=== PATIENT | female | born 1935 | race African-American/Black ===

== ENCOUNTER 2017-10-07 06:56 | Inpatient (IN) | payer OTHER, MEDICARE ==
[~2017-10-07] VITALS: Ht 154.9 cm; Wt 115.0 kg
[~2017-10-07 06:56] MED LIST: ASPIRIN EC81 M1 PO; IBUPROFEN400 M1 PO; ISOSORBIDE DINI30 M1 PO; ISOSORBIDE MONO30 M1 PO; K-TAB ER10 MEQ PO; LASIX40 M1 PO; NITROSTAT0.4 M1 SL; POTASSIUM CHLO20 ME2 PO; POTASSIUM CHLO20 ME3 PO; PROAIR HFA8.5 GM INH
--- NOTE | 2017-10-07 07:34 | ED CARDIAC/CP/PALPITATIONS ---
History of Present Illness General Chief Complaint: Shoulder Injury Stated Complaint: BIBA SHOULDER PAIN Source: patient Exam Limitations: no limitations Vital Signs & Intake/Output Vital Signs & Intake/Output Vital Signs Date Time Temp Pulse Resp B/P B/P Pulse O2 O2 Flow FiO2 Mean Ox Delivery Rate 10/07 1945 Nasal 2.0L Cannula 10/07 1700 98.0 80 18 140/86 91 / 1533 97.9 76 20 128/64 98 Nasal 2.0L Cannula 10/07 1441 98.0 83 18 137/68 98 Nasal 2.0L Cannula 10/07 1249 97.6 80 20 157/70 95 Nasal 2.0L Cannula 10/07 1043 97.4 73 20 134/63 97 Nasal 2.0L Cannula / 0910 97.0 77 20 135/63 97 Nasal 2.0L Cannula 10/07 0829 97 Nasal 2.0L Cannula / 0704 18 95 Nasal 2.0L Cannula / 0700 98.3 82 18 137/64 91 Room Air Allergies Coded Allergies: Penicillins (Severe, HIVES 03/06/17) Sulfa (Sulfonamide Antibiotics) (Severe, HIVES 03/06/17) Reconcile Medications Aspirin (Ecotrin*) 81 MG TABLET.DR 1 TAB PO DAILY HEART HEALTH (Reported) Furosemide (Lasix) 40 MG TABLET 1 TAB PO DAILY CHF (Reported) Ibuprofen 400 MG TABLET 1 TAB PO Q6 PRN hip pain Isosorbide Dinitrate 30 MG TABLET 1 TAB PO DAILY CAD (Reported) Isosorbide Mononitrate (Isosorbide Mononitrate ER) 30 MG TAB.ER.24H 1 TAB PO DAILY chf Potassium Chloride (K-Tab ER) 10 MEQ TABLET.ER 1 TAB PO DAILY potassium supplement Triage Note: PT BIBA FROM HOME C/O RIGHT ARM SWELLING/PAIN RADIATING UP TO NECK AND AROUND SHOULDER BLADES. PT STATES CHEST PAIN PREVIOUSLY , NOT CURRENT, SHARP SHOOTING CP. PT DENIES ARM NUMBNESS/TINGLING, JAW OR BACK PAIN, N/V/D. PTS VSS BESIDES 02 LEVEL OF 91% ON RA ON ARRIVAL. PT PLACED ON 2L NC 95% O2. PTS DAUGHTER STATES THAT YESTERDAY PT WAS COMPLAINING OF SWELLING AND ACHING IN HER NECK. PTS RIGHT ARM IS SWOLLEN/HARD TO MOVE PER PT. PT [facility]R[address] A [facility] [facility] Triage Nurses Notes Reviewed? yes Onset: Abrupt Duration: day(s): (3), constant Timing: single episode today Quality/Severity: moderate Location: central Radiation: neck, shoulders Activities at Onset: none Prior Chest Pain/Card Workup: no prior chest pain, no prior cardiac workup Modifying Factors: Improves With: movement. Nitro Today/Relief: no nitro taken today Aspirin Today: no aspirin today Associated Symptoms: shortness of breath LMP (ages 10-50): unknown : No Patient currently breastfeeds: No HPI: 82-year-old female past medical history of CHF, asthma presents for evaluation of chest pain, arm pain and shortness breath. Patient reports symptoms started on Saturday with pain in her chest radiating to her right shoulder and neck and right arm. The pain was initially described as sharp without alleviating or agony factors. States that today the pain is only present in the right arm. The pain is located in the right elbow and right wrist. She feels like her arm is swollen the pain is worse in any type of movement or touching the area. There is no trauma no redness or fever. She still reports some shortness of breath worse on exertion. She is not a smoker no history of COPD. She denies hemoptysis abdominal pain nausea vomiting or diarrhea. (Alok Reza) Past History Travel History Traveled to [place] past 21 day No Medical History Any Pertinent Medical History? see below for history Cardiovascular: CHF, hypertension Respiratory: asthma, bronchitis Musculoskeletal: ARTHRITIS Surgical History Surgical History: non-contributory Psychosocial History What is your primary language Ukrainian Tobacco Use: Quit >30 days ago Family History Hx Contributory? No (Alok Reza) Review of Systems Review of Systems Constitutional: Reports: no symptoms. EENTM: Reports: no symptoms. Respiratory: Reports: see HPI, short of breath. Cardiovascular: Reports: see HPI, chest pain. GI: Reports: no symptoms. Genitourinary: Reports: no symptoms. Musculoskeletal: Reports: no symptoms. Skin: Reports: no symptoms. Neurological/Psychological: Reports: no symptoms. Hematologic/Endocrine: Reports: no symptoms. Immunologic/Allergic: Reports: no symptoms. All Other Systems: Reviewed and Negative (Alok Reza) Physical Exam Physical Exam General Appearance: well developed/nourished, no apparent distress, alert, awake , obese Head: atraumatic, normal appearance Eyes: Bilateral: normal appearance, PERRL, EOMI. Ears, Nose, Throat: normal pharynx, normal ENT inspection, hearing grossly normal Neck: normal inspection, supple, full range of motion Respiratory: chest non-tender, no respiratory distress, quiet respiration, decreased breath sounds Cardiovascular: regular rate/rhythm, normal peripheral pulses Peripheral Pulses: 2+ radial (R), 2+ radial (L) Gastrointestinal: normal bowel sounds, soft, non-tender, no organomegaly Back: normal inspection, normal range of motion, no vertebral tenderness Extremities: no edema, RANGE OF MOTION OF THE RIGHT UPPER EXTREMITY IS REDUCED DUE TO PAIN. tHERE IS PAIN TO PALPATION IN THE RIGHT ELBOW AND RIGHT WRIST. nO SIGNIFICANT OBSERVABLE SWELLING. nO ERYTHEMA. nO FOCAL FLEXION AREAS AT DISCHARGE AND NEUROVASCULAR SUPPLY IS INTACT NO OTHER JOINT SWELLING OR PAIN Neurologic/Psych: no motor/sensory deficits, awake, alert, oriented x 3, normal gait Skin: intact, normal color, warm/dry Lymphatic: no anterior cervical dani Core Measures ACS in differential dx? No CVA/TIA Diagnosis No Sepsis Present: No Sepsis Focused Exam Completed? No (Dion MENDOZA,Alok) Progress Differential Diagnosis: AMI, aortic dissection, atrial fibrillation, CHF/pulm edema, musculoskeletal pain, pericarditis, pneumonia, pneumothorax, PSVT, pulmonary embolism, PVCs/PACs, sepsis, unstable angina Plan of Care: Orders Procedure Date/time Status CBC WITHOUT DIFFERENTIAL 10/08 0600 Active BASIC ELECTROLYTES PLUS BUN&CR 10/08 0600 Active Heart Healthy Diet 10/07 D Active TROPONIN LEVEL 10/07 1800 Complete EKG 10/07 1800 Active Weight 10/07 1734 Active Vital Signs 10/07 1734 Active Teach/Educate 10/07 1734 Active Pain Treatment and Response 10/07 1734 Active Nutritional Intake, Monitor 10/07 1734 Active Isolation 10/07 1734 Active Intake & Output 10/07 1734 Active Patient Care Conference 10/07 1734 Active Activity/Ambulation 10/07 1734 Active Vital Signs 10/07 1700 Active Patient Data 10/07 1644 Active TRC EVALUATION (GEN) 10/07 1517 Active Pathway - chart 10/07 1517 Active House Staff 10/07 1517 Active Patient Data 10/07 1517 Active ED Holding Orders 10/07 1433 Active Admit to inpatient 10/07 1433 Active Code Status 10/07 1433 Active TROPONIN LEVEL 10/07 1130 Complete EKG 10/07 1130 Active TOTAL IRON BINDING CAPACITY 10/07 810 Active GLYCOSYLATED HGB 10/07 810 Active FERRITIN 10/07 810 Active SERUM IRON 10/07 810 Active Intake & Output 10/07 726 Complete RETICULOCYTE COUNT 10/07 726 Complete WESTERGREN SED RATE 10/07 726 Complete TROPONIN LEVEL 10/07 716 Active D-DIMER 10/07 716 Complete COMPREHENSIVE METABOLIC PANEL 10/07 716 Active CBC WITHOUT DIFFERENTIAL 10/07 716 Complete B-TYPE NATRIURETIC PEP (BNP) 10/07 716 Active EKG 10/07 716 Active Lab Add-on Test 10/07 UNK Active VTE Mechanical Prophylaxis 10/07 UNK Active Telemetry/Souvenir [employer] Novelty Maker 10/07 UNK Active Intake & Output 10/07 UNK Active Current Medications Sig/Dominguez Start time Last Medication Dose Stop Time Status Admin Aspirin Buffered 81 MG DAILY 10/08 899 AC (Ecotrin) Enoxaparin Sodium 40 MG DAILY 10/08 899 AC (Lovenox) Furosemide 40 MG DAILY 10/08 899 AC (Lasix) Acetaminophen 650 MG Q6P PRN 10/07 1515 AC (Tylenol) Ibuprofen 600 MG Q6P PRN 10/07 1515 AC (Motrin) Oxycodone/ 2 TAB Q6P PRN 10/07 1515 AC Acetaminophen (Percocet) Laboratory Tests 10/07/17 1805: Troponin I < 0.01 10/07/17 1140: Troponin I < 0.01 10/07/17 0811: Anion Gap 11, Estimated GFR > 60, BUN/Creatinine Ratio 17.5, Glucose 128 H, Hemoglobin A1c Pending, Calcium 8.9, Iron 22 L, TIBC 208 L, Ferritin 161.0, Total Bilirubin 0.5, AST 13 L, ALT 19, Alkaline Phosphatase 86, Troponin I < 0.01, Hgc-T-Fcuphlqqehz Pept 145 H, Total Protein 7.8, Albumin 3.3 L, Globulin 4.5 H, Albumin/Globulin Ratio 0.7 L 10/07/17726: D-Dimer High Sensitivty 762 H, CBC w Diff NO MAN DIFF REQ, RBC 4.08 L, MCV 74.8 L, MCH 22.9 L, MCHC 30.7 L, RDW 18.8 H, MPV 7.5, Gran % 76.3 H, Lymphocytes % 17.1 L, Monocytes % 6.2, Eosinophils % 0.1, Basophils % 0.3, Absolute Granulocytes 8.3 H, Absolute Lymphocytes 1.9, Absolute Monocytes 0.7 H, Absolute Eosinophils 0, Absolute Basophils 0, ESR Westergren 122 H, Retic Count 2.4 H Patient seen and evaluated. She is reporting episodes of chest pain and right arm pain shortness of breath. Symptoms been ongoing and past few days. Currently she is reporting only pain in her right arm and some shortness of breath is worse on exertion. Initial evaluation she has an oxygen saturation 91 % on room air. She has diminished breath sounds bilaterally. No history of COPD she was never a smoker. We'll check basic labs including d-dimer and troponin. EKG and chest x-ray obtained. Also x-rays of the right elbow and right wrist. Arm x-rays Negative for fracture. Chest x-ray does show some evidence of CHF and mild vascular congestion. D-dimer is elevated we'll check a CTA. Patient was medicated with IV Tylenol reports an improvement in her arm pain. Repeat EKG troponin are negative and unchanged. Patient was able later in the emergency department and her oxygen saturation was 88%. She will require admission for further evaluation and treatment. IV Lasix ordered for possible fluid overload. Case discussed with Dr. Dejesus he agrees patient will require cardiology consult, IV Lasix, telemetry, serial labs, serial EKGs. Diagnostic Imaging: Viewed by Me: Radiology Read. Discussed w/RAD: Radiology Read. Initial ED EKG: normal sinus rhythm, LVH, NONSPECIFIC IVCD Comments: PATIENT: MEHRAN SCHAFFER PRESENT AGE: 82 PATIENT ACCOUNT NO: [id number] : 35 LOCATION: [facility] ORDERING PHYSICIAN: Alok MENDOZA SERVICE DATE: 10/07/17 EXAM TYPE: RAD - XRY-CHEST XRAY, TWO VIEWS EXAMINATION: XR CHEST CLINICAL INFORMATION: Chest pain, shortness of breath COMPARISON: 07/26/2017 TECHNIQUE: 2 views of the chest were obtained. FINDINGS: Given differences in technique, cardiomegaly appears stable. There is stable unfolding of the thoracic aorta. There remains mild central pulmonary vascular and perihilar prominence, similar to the prior. There is overlapping soft tissue at the lung bases without definitive pleural effusion visualized. No pneumothorax. There are multilevel degenerative changes of the spine without evidence of interval compression deformity or other acute osseous abnormality. IMPRESSION: Mild central pulmonary vascular/perihilar prominence in the setting of cardiomegaly appears stable from 07/26/2017, and may be reflective of mild volume overload. DICTATED BY: Keyana Connolly MD DATE/TIME DICTATED:10/07/17816 CUSTOMER GREETER:LADONNA DATE/TIME TRANSCRIBED:10/07/17816 CONFIDENTIAL, DO NOT COPY WITHOUT APPROPRIATE AUTHORIZATION. PATIENT: MEHRAN SCHAFFER PRESENT AGE: 82 PATIENT ACCOUNT NO: [id number] : 35 LOCATION: [facility] ORDERING PHYSICIAN: Alok MENDOZA SERVICE DATE: 10/07/17 EXAM TYPE: RAD - XRY-ELBOW 3 OR MORE VIEWS, R; XRY-WRIST COMPLETE-RIGHT EXAMINATION: XR RIGHT WRIST AND ELBOW CLINICAL INFORMATION: Left elbow pain and swelling. Left wrist pain and swelling. COMPARISON: None TECHNIQUE: 5 views of the right elbow. 4 views of the right wrist. FINDINGS: Elbow: There is no evidence of fracture, dislocation, or elbow joint effusion. The joint spaces are fairly well-maintained. Alignment appears anatomic. Mild subchondral spurring involving the proximal ulna. The soft tissues appear unremarkable. Wrist: There is no evidence of fracture or dislocation. The bones appear somewhat demineralized. Alignment is anatomic. There are moderate degenerative changes at the first CMC. There are degenerative changes at the PIP and DIP joints as well as the first MCP. IMPRESSION: There is no evidence of fracture or dislocation involving the right elbow or wrist. No evidence of right elbow joint effusion. DICTATED BY: Keyana Connolly MD DATE/TIME DICTATED:10/07/17806 CUSTOMER GREETER:LADONNA DATE/TIME TRANSCRIBED:10/07/17806 CONFIDENTIAL, DO NOT COPY WITHOUT APPROPRIATE AUTHORIZATION. <Electronically signed in Other Vendor System> SIGNED BY: Keyana Connolly MD 10/07/17815 (Dion MENDOZA,Alok) Departure Departure Disposition: STILL A PATIENT Condition: Stable Clinical Impression Primary Impression: CHF exacerbation Qualifiers: Heart failure type: unspecified Qualified Code: I50.9 - Heart failure, unspecified Referrals: Patel GAMBOAEsa (PCP/Family) Departure Forms: Customer Survey General Discharge Information Admission Note Spoke With: Maxwell Crum MD Documentation of Exam: Documentation of any treatments & extenuating circumstances including Concerns Regarding Discharge (functional status, medication knowledge or non-compliance, living conditions, etc.) that warrant an admission rather than observation: [IV Lasix, serial labs, serial EKGs, telemetry, cardiology, oxygen setup, medication adjustment] (Alok Reza) PA/RN BEHAVIORAL HEALTH Co-Sign Statement Statement: ED Attending supervision documentation- [] I saw and evaluated the patient. I have also reviewed all the pertinent lab results and diagnostic results. I agree with the findings and the plan of care as documented in the PA's/RN BEHAVIORAL HEALTH's documentation. [x] I have reviewed the ED Record and agree with the PA's/RN BEHAVIORAL HEALTH's documentation. [] Additions or exceptions (if any) to the PAs/RN BEHAVIORAL HEALTH's note and plan are summarized below: [] (Lacho Dejesus DO) Critical Care Note Critical Care Note Critical Care Time: non-applicable (Alok Reza)
[2017-10-07 07:39] LABS: ABSOLUTE BASOPHIL COUNT 0 /CUMM (0.0-0.2); ABSOLUTE EOSINOPHIL COUNT 0 /CUMM (0.0-0.7); ABSOLUTE GRANULOCYTE CT 8.3 /CUMM (1.4-6.5); ABSOLUTE LYMPH COUNT 1.9 /CUMM (1.2-3.4); ABSOLUTE MONOCYTE COUNT 0.7 /CUMM (0.10-0.60); BASOPHIL % 0.3 % (0.0-2.0); EOSINOPHIL % 0.1 % (0-5); GRANULOCYTE % 76.3 % (42.2-75.2); HEMATOCRIT 30.5 % (37-47); MEAN CORPUSCULAR HGB 22.9 PG (27.0-31.0); MEAN CORPUSCULAR HGB CONC 30.7 G/DL (33.0-37.0); MEAN CORPUSCULAR VOLUME 74.8 FL (81.0-99.0); MEAN PLATELET VOLUME 7.5 FL (7.4-10.4); PLATELET COUNT 393 /CUMM (130-400); RBC DISTRIBUTION WIDTH 18.8 % (11.5-14.5); RED BLOOD CELL CT 4.08 /CUMM (4.20-5.40); WHITE BLOOD CELL COUNT 10.8 /CUMM (4.8-10.8)
--- NOTE | 2017-10-07 08:16 | RADIOLOGY REPORT ---
EXAMINATION: XR RIGHT WRIST AND ELBOW CLINICAL INFORMATION: Left elbow pain and swelling. Left wrist pain and swelling. COMPARISON: None TECHNIQUE: 5 views of the right elbow. 4 views of the right wrist. FINDINGS: Elbow: There is no evidence of fracture, dislocation, or elbow joint effusion. The joint spaces are fairly well-maintained. Alignment appears anatomic. Mild subchondral spurring involving the proximal ulna. The soft tissues appear unremarkable. Wrist: There is no evidence of fracture or dislocation. The bones appear somewhat demineralized. Alignment is anatomic. There are moderate degenerative changes at the first CMC. There are degenerative changes at the PIP and DIP joints as well as the first MCP. IMPRESSION: There is no evidence of fracture or dislocation involving the right elbow or wrist. No evidence of right elbow joint effusion.
--- NOTE | 2017-10-07 08:23 | RADIOLOGY REPORT ---
EXAMINATION: XR CHEST CLINICAL INFORMATION: Chest pain, shortness of breath COMPARISON: 07/26/2017 TECHNIQUE: 2 views of the chest were obtained. FINDINGS: Given differences in technique, cardiomegaly appears stable. There is stable unfolding of the thoracic aorta. There remains mild central pulmonary vascular and perihilar prominence, similar to the prior. There is overlapping soft tissue at the lung bases without definitive pleural effusion visualized. No pneumothorax. There are multilevel degenerative changes of the spine without evidence of interval compression deformity or other acute osseous abnormality. IMPRESSION: Mild central pulmonary vascular/perihilar prominence in the setting of cardiomegaly appears stable from 07/26/2017, and may be reflective of mild volume overload.
--- NOTE | 2017-10-07 13:20 | CT SCAN REPORT ---
EXAMINATION: CT CHEST PE STUDY CLINICAL INFORMATION: Chest pain, shortness of breath, hypoxia. Presumptive diagnosis of PE, pneumonia. COMPARISON: Chest x-ray dated 10/07/2017. TECHNIQUE: Prior to contrast administration, localization images were obtained. After the administration of 95 and mL of intravenous Optiray 320, multidetector CT volume acquisition of the chest was performed. 3-D postprocessing was performed with multiplanar reconstructions and MIP images obtained at the acquisition workstation under concurrent physician supervision. DLP: 515.69 mGy-cm. FINDINGS: Pulmonary arteries: The bolus timing on this study was acceptable for visualization of the pulmonary arterial tree. There are no intraluminal pulmonary arterial filling defects present to suggest pulmonary embolism in the main pulmonary artery, right and left main pulmonary artery, lobar and segmental branches. Lungs: No pulmonary nodules, masses, pleural effusion or pneumothorax. Concavity of the membranous portion of the upper thoracic trachea is seen, perhaps related to imaging in the expiratory phase. The central airways are otherwise patent. There are patchy groundglass opacities seen in the inferior right middle lobe, lingula, and in both lower lobes, possibly due to incomplete lung expansion and atelectatic change. Findings may also be reflective of mild alveolar edema. No dense consolidation, pleural effusion or pneumothorax is seen. Aorta and heart: Four-chamber enlargement of the heart is seen. There is no pericardial effusion. Mild atherosclerotic calcifications of the aorta seen. Main, right and left pulmonary arteries are enlarged. The main pulmonary artery measures 3.4 cm in maximal diameter as compared to the ascending aorta, which measures 3.1 cm, raising the suspicion of pulmonary arterial hypertension. Lymphatic structures: There is no lymphadenopathy. Calcified right hilar lymph node and right upper paratracheal lymph node are seen. Upper abdomen: Limited evaluation of the upper abdominal viscera demonstrates no focal abnormality. Bones: Moderate degenerative changes throughout the thoracal lumbar spine with disc disease and vertebral spurring seen. IMPRESSION: 1. No evidence of pulmonary embolism. 2. Patchy areas of groundglass opacities seen in the mid and lower lungs bilaterally in a predominantly dependent location, suggestive of incomplete lung expansion and atelectatic change. Subtle alveolar edema cannot be entirely excluded, but is felt to be less likely. No focal pneumonia is seen. 3. Four-chamber enlargement of the heart. 4. Enlarged central pulmonary arteries, suspicious for pulmonary arterial hypertension. 5. Evidence of prior granulomatous disease with calcified mediastinal and right hilar lymph nodes seen.
--- NOTE | 2017-10-07 14:52 | History & Physical ---
Ching Dykes MD 10/07/17 1061: General Information and HPI MD Statement: I have seen and personally examined MEHRAN SCHAFFER and documented this H&P. The patient is a 82 year old F who presented with a patient stated chief complaint of right sided joint pain radiating to chest. Source of Information: patient, old records Exam Limitations: no limitations History of Present Illness: Patient is an 82-year-old female with a past medical history significant for asthma/bronchitis, arthritis, congestive heart failure, that is brought in by ambulance from home for complaints of right arm and hand pain and swelling that radiated to her chest. Patient states that the wrist and hand pain began 2 weeks ago but the chest pain began last Saturday, 10/04. The patient states that when the pain in her wrist began, she wrapped it with El bandage and applied heat to help with the swelling and pain. She states that she took ibuprofen as well to only mild effect. Patient states that the pain and swelling hindered movement of the wrist. She notes that the last time she got chest pain was today and it "felt like something hot inside" her chest. She rates the pain at 8/10. She has no recent injury and has never experienced something like this before. She also admits to some mild shortness of breath and severe diaphoresis in which she "woke up in drenched clothes". The patient states that she usually sleeps with 2 pillows secondary to some shortness of breath and notes that her sleep is usually poor because of pain. Patient also states that she hasn't been eating well for the past 2 weeks and has been nauseous, did in fact vomit one week ago. The patient states that when the chest pain began she took isosorbide mononitrate given by her patcher helper. She states that this did in fact help with the chest pain. The patient admits to headache whenever she has taken nitrates. The patient lives with her grandson and daughter. She walks unassisted. She is usually independent in her activities of daily living. Patient denies a family history of joint problems, states that she has heart problems including enlarged heart and anemia on her mother's side of the family. A she denies any recent travel other than a trip to the [facility] in August. Patient states that she smokes for 10 years, 2 packs per day but quit in 1991. She admits to rare alcohol use but hasn't used" quite a while". Patient denies any drug use. Allergies to penicillin and sulfa causing skin eruption. Allergies/Medications Allergies: Coded Allergies: Penicillins (Severe, HIVES 03/06/17) Sulfa (Sulfonamide Antibiotics) (Severe, HIVES 03/06/17) Compliance With Home Meds: GOOD Past History Travel History Traveled to [place] past 21 day No Medical History Cardiovascular: CHF, hypertension Respiratory: asthma, bronchitis Musculoskeletal: ARTHRITIS Surgical History Surgical History: non-contributory Review of Systems Review of Systems Constitutional: Reports: weakness. EENTM: Reports: no symptoms. Cardiovascular: Reports: chest pain. Respiratory: Reports: no symptoms. GI: Reports: no symptoms. Genitourinary: Reports: no symptoms. Musculoskeletal: Reports: joint pain, joint swelling. Skin: Reports: no symptoms. Neurological/Psychological: Reports: no symptoms. Hematologic/Endocrine: Reports: no symptoms. Immunologic/Allergic: Reports: no symptoms. All Other Systems: Reviewed and Negative Exam & Diagnostic Data Last 24 Hrs of Vital Signs/I&O Vital Signs Date Time Temp Pulse Resp B/P B/P Pulse O2 O2 Flow FiO2 Mean Ox Delivery Rate 10/07 1945 Nasal 2.0L Cannula 10/07 1700 98.0 80 18 140/86 91 10/07 1533 97.9 76 20 128/64 98 Nasal 2.0L Cannula 10/07 1441 98.0 83 18 137/68 98 Nasal 2.0L Cannula 10/07 1249 97.6 80 20 157/70 95 Nasal 2.0L Cannula 10/07 1043 97.4 73 20 134/63 97 Nasal 2.0L Cannula 10/07 0910 97.0 77 20 135/63 97 Nasal 2.0L Cannula 10/07 0829 97 Nasal 2.0L Cannula 10/07 0704 18 95 Nasal 2.0L Cannula 10/07 0700 98.3 82 18 137/64 91 Room Air Intake & Output 10/07 1600 10/07 0800 05 0000 Intake Total 100 Output Total Balance 100 Intake, IV 100 Patient 260 lb Weight Weight Reported by Patient Measurement Method Physical Exam General Appearance Alert, Oriented X3, Cooperative, Mild Distress Skin No Rashes, No Breakdown, No Significant Lesion Skin Temp/Moisture Exam: Warm/Dry Sepsis Skin Exam (color): Normal for Ethnicity HEENT Atraumatic, PERRLA, EOMI, Mucous Membr. moist/pink Neck Supple Cardiovascular Regular Rate, Normal S1, Normal S2, No Murmurs Lungs Clear to Auscultation, Normal Air Movement Abdomen Normal Bowel Sounds, Soft, No Tenderness Neurological Normal Speech Extremities No Clubbing, No Cyanosis, No Edema, Normal Pulses, right elbow and shoulder joint warmth and tenderness on palpation. Nodular formations felt in the MCP and PIP. No deviation of the fingers. 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 Vascular Normal Pulses Sepsis Peripheral Pulse Location: Radial Sepsis Peripheral Pulse Exam: Normal Sepsis Cap Refill Exam: <2 Sec Last 24 Hrs of Labs/Brandt: Laboratory Tests 10/07/17 1805: Troponin I < 0.01 10/07/17 1140: Troponin I < 0.01 10/07/17 0811: Anion Gap 11, Estimated GFR > 60, BUN/Creatinine Ratio 17.5, Glucose 128 H, Hemoglobin A1c Pending, Calcium 8.9, Iron 22 L, TIBC 208 L, Ferritin 161.0, Total Bilirubin 0.5, AST 13 L, ALT 19, Alkaline Phosphatase 86, Troponin I < 0.01, Smr-G-Jrnsrrflyhl Pept 145 H, Total Protein 7.8, Albumin 3.3 L, Globulin 4.5 H, Albumin/Globulin Ratio 0.7 L 10/07/17 0727: D-Dimer High Sensitivty 762 H, CBC w Diff NO MAN DIFF REQ, RBC 4.08 L, MCV 74.8 L, MCH 22.9 L, MCHC 30.7 L, RDW 18.8 H, MPV 7.5, Gran % 76.3 H, Lymphocytes % 17.1 L, Monocytes % 6.2, Eosinophils % 0.1, Basophils % 0.3, Absolute Granulocytes 8.3 H, Absolute Lymphocytes 1.9, Absolute Monocytes 0.7 H, Absolute Eosinophils 0, Absolute Basophils 0, ESR Westergren 122 H, Retic Count 2.4 H Assessment/Plan Assessment: Patient is an 82-year-old female with a past medical history significant for asthma/bronchitis, arthritis, congestive heart failure, that is brought in by ambulance from home for complaints of right arm and hand pain and swelling that radiated to her chest and began about 2 weeks ago. Patient states that nitrates help with the chest pain. She also has been experiencing nightsweats but denies any recent weight loss. She has been experiencing some recent symptoms of CHF including requiring pillows for sleep. In the ED, patient's vitals showed temperature of 98, heart rate 83, respiratory rate 18, blood pressure 137/68, recorded O2 saturation of 91% on room air that increased to 98% on 2 L. Her troponins 2 were 0.01. Her EKG showed a rate of 70, regular with evidence of right bundle branch block and a QTC of [address] or T-wave changes. Labs showed a d-dimer of 762, hemoglobin of 9.3 with an MCV of 74.8, all else normal. Chest x-ray showed mild central pulmonary vascular/perihilar prominence in the setting of cardiomegaly stable from previous reading in July of this year which may be reflective of mild volume overload. A elbow/wrist x-ray showed no evidence of fracture, dislocation or joint effusion. CTA done showed no evidence of pulmonary embolism, positive atelectatic change, no pneumonia but enlarged central pulmonary arteries and evidence of potential prior granulomatous disease. Physical exam is in for right elbow, wrist, and shoulder joints warmness and tenderness on palpation. Her MCP and PIP joints were nodular and painful on palpation. Moving them elicited pain and her strength was accordingly decreased in her right hand. In the ED she was given 1 dose of Lasix IV 40 mg for her oxygen desaturation and evidence of CHF on chest x-ray. Problem list and Plan: Atypical chest pain: Chest pain is mostly in right chest, no change on exertion. However pain is relieved by nitrates and she is a past smoker. -EKG and troponin one more time -Telemetry monitoring -Echocardiogram -Suggest cardiology consult -Continue home medications including nitrates, lasix, aspirin Joint pain and swelling: no effusion on imaging in the wrist and elbow. Seems likely that she has multiple septic joints. 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 Differential diagnosis could include crystal induced arthritides, RA, psoriatic arthritis, connective tissue disease, still's disease, osteoarthritis. Patient is afebrile, with no wbc count. Question of potential sacrcoid arthropathy which is a common manifestation of a rare disease as patient was found to have evidence of prior granulamatous disease with calcified mediastinal and right hilar lymph nodes, chest pain, nightsweats, RBBB, is black, however age is older than usual sarcoid diagnoses. -Suggest rheumatology consult -ESR and CRP -RF and MARK and CCP and ANCA -Continue ibuprofen for pain relief -Right hand xray and only elbow and wrist were done -Consider EL level for sarcoidosis. Anemia: hemoglobin 9.3, MCV 74.8. -Iron labs History CHF: some evidence congestion on CXR and low O2 sat on room air -O2 as needed -Continue home dose of Lasix 40mg daily -Follow up BEP Heart Healthy Diet DVT prophylaxis with ALPs and Lovenox FULL CODE As Ranked By This Provider Problem List: 1. Atypical chest pain 2. History of CHF (congestive heart failure) 3. Painful swelling of joint Core Measures/Misc (02/17) Acute Coronary Syndrome ACS Diagnosis: No Congestive Heart Failure Congestive Heart Failure Diagnosis No Cerebrovascular Accident CVA/TIA Diagnosis: No VTE (View Protocol) VTE Risk Factors Acute Medical Illness No Mechanical VTE Prophylaxis d/t N/A MechProphylax Ordered No VTE Pharm Prophylaxis d/t NA PharmProphylax ordered Sepsis (View protocol) Sepsis Present: No Maria Teresa Hernandez MD 10/07/17 1700: Attending MD Review Statement Attending Statement Attending MD Statement: examined this patient, discuss w/resident/PA/SPICE CLEANER, agreed w/resident/PA/SPICE CLEANER, reviewed EMR data (avail), discussed with nursing, reviewed images Attending Assessment/Plan: 82 year female past medical history of bronchitis, CHF and questionable arthritis. She is maintained on aspirin, Lasix, ibuprofen and Imdur on the outside and follows with a patcher helper on the outside. She is here with a constellation of symptoms that include episodes of chest pain atypical in nature for classic ischemia, and right shoulder right elbow and right wrist pain. Her chest pain appears atypical in nature but given her risk factors of postmenopausal state and ex-smoker will bring her into telemetry, rule her out with serial enzymes and EKG, get an echo, continue her aspirin Lasix and Imdur for now and get a patcher helper to see her for risk stratification. As far as her joints are concerned - On physical exam there are no obvious effusions in her right elbow or her right wrist and imaging is also negative. Her right hand clearly has some nodularity of the PIPs and some chronic changes in the PIP joints. At this point I will get an ESR, CRP to rule out any underlying rheumatological process. We'll continue her low-dose NSAID keeping a watch and a hemoglobin and call a rheumatology consult. We will also get an x-ray of the small joints of the right hand to look for any chronic arthritic changes. Joaquín GAMBOA,Rachelseverino 10/07/17 3420: General Information and HPI Allergies/Medications Home Med list Aspirin (Ecotrin*) 81 MG TABLET.DR 1 TAB PO DAILY HEART HEALTH (Reported) Ferrous Sulfate 325 MG (65 MG IRON) TABLET 1 TAB PO DAILY Supplement Furosemide (Lasix) 40 MG TABLET 1 TAB PO DAILY CHF (Reported) Ibuprofen 400 MG TABLET 1 TAB PO Q6 PRN hip pain Isosorbide Mononitrate (Isosorbide Mononitrate ER) 30 MG TAB.ER.24H 1 TAB PO DAILY chf Potassium Chloride (K-Tab ER) 10 MEQ TABLET.ER 1 TAB PO DAILY potassium supplement Prednisone 10 MG TABLET 1 TAB PO DAILY Arthritis Resident Review Statement Resident Statement: examined this patient, discussed with communications intern, agreed with communications intern Other Findings: This is an 82-year-old -[place] female with past medical history significant for hypertension, asthma, bronchitis, arthritis, anemia, CHF, who comes in for chief complaint of right-sided chest pain and arm swelling. Patient states that about 2 weeks ago she noted some weakness in her right hand. Subsequently she noted some right shoulder pain and then this past the pain also included her right wrist. She says that the entire arm started swelling and became excruciatingly painful to movement. Additionally she started developing a stabbing right-sided chest pain that radiated from her right arm. She did endorse insomnia due to pain and had some diaphoresis as well. She stated that the chest pain seemed to improve with nitro. She has a patcher helper sp? Dr. Noriega whom she gets isosorbide mononitrate, sublingual nitro, and Lasix. She intermittently uses baby aspirin. The chest pain was present about 2 weeks ago and then again today. Describes it as a right sided chest pain that radiates FROM her arm to her chest. Phys exam and labs as above. PLAN: 1. Arthritis: Given the patient afebrile, without white count and indolent time course does not seem likely that she has multiple septic joints. She has a chronic inflammatory asymmetric only go to polyarticular arthritis. Differential diagnosis could include crystal induced arthritides, RA versus psoriatic, connective tissue disease, still's disease, or sarcoid arthropathy given the granulomatous disease with calcification in the mediastinum and right hilar lymph node seen on x-ray. * ESR, CRP * RA, CCP, MARK, ANCA * Continue ibuprofen * Rheumatology consult in a.m. * X-ray of hand, x-ray of the wrist, x-ray of shoulder. * Blood cultures * Consider EL level in AM Chest pain: Patient describes an atypical type chest pain. However she does have unknown cardiac history and she is on isosorbide, sublingual nitro and Lasix previously. Her EKG shows normal sinus rhythm with a rate of 73, a right bundle branch block with the possible left anterior fascicular block. QTc 516. BMP is 145 suggesting against heart failure. Her d-dimer was 762 and a CTA showed no evidence of pulmonary embolus. A chest x-ray was suggestive of mild volume overload but this does not seem as evident on CT. No obvious evidence of pericarditis. * Monitor on telemetry * Serial troponin EKG * Cardio consult in am * Echo * Contact her patcher helper for records 3. Incidental findings of GG O in mid/lower lungs with hilar enlargement, prior granulomatous disease with calcifications.Patient is not complaining of any respiratory problems but she was noted to be saturating as low as 90 and 91 in ED. * Monitor for symptoms in a.m. Full code Chemical prophylaxis Heart healthy diet
[2017-10-07 17:00] VITALS: BP 140/86
[2017-10-07 23:07] VITALS: BP 140/90
[2017-10-08 01:28] VITALS: BP 148/72
--- NOTE | 2017-10-08 07:01 | PN- Housestaff ---
John GAMBOA,[facility] 10/08/17 0701: Subjective Follow-up For: Arthritis Chest Pain Tele-Events Since Last Visit: NSR with HR 69-82 Subjective: Patient was seen and examined at bedside. She reports feeling better but still has mild chest pain and difficulty with motion of her right arm. There is some swelling as well. Review of Systems Constitutional: Reports: no symptoms. Objective Last 24 Hrs of Vital Signs/I&O Vital Signs Date Time Temp Pulse Resp B/P B/P Pulse O2 O2 Flow FiO2 Mean Ox Delivery Rate 10/08 0848 82 124/60 10/08 08 Nasal 2.0L Cannula 10/08 0718 98.4 94 18 148/72 97 Nasal Cannula 10/08 0128 98.4 94 18 148/72 97 Nasal Cannula 10/07 2307 98.8 78 26 140/90 93 10/07 2213 Nasal 2.0L Cannula 10/07 1945 Nasal 2.0L Cannula 10/07 1700 98.0 80 18 140/86 91 10/07 1533 97.9 76 20 128/64 98 Nasal 2.0L Cannula 10/07 1441 98.0 83 18 137/68 98 Nasal 2.0L Cannula Intake & Output 10/08 1600 10/08 0800 10/08 0000 Intake Total 380 Output Total 500 250 Balance -120 -250 Intake, Oral 380 Number 1 Bowel Movements Output, Urine 500 250 Patient 258 lb Weight Weight Bed scale Measurement Method Physical Exam General Appearance: Alert, Oriented X3, Cooperative, Mild Distress Skin: No Rashes, No Breakdown Skin Temp/Moisture Exam: Warm/Dry Sepsis Skin Exam (color): Normal for Ethnicity HEENT: Atraumatic Cardiovascular: Normal S1, Normal S2, No Murmurs Lungs: Normal Air Movement, decreased air entry at RLL Abdomen: Soft, No Tenderness Neurological: Normal Speech Extremities: bilateral lower extremity 1+ edema, restricted ROM of right upper extremity. Last 24 Hrs of Lab/Brandt Results Last 24 Hrs of Labs/Mics: Laboratory Tests 10/08/17 0715: Anion Gap 12, Estimated GFR 60, BUN/Creatinine Ratio 21.1, Uric Acid 6.9 H, C- Reactive Prot, Quant > 9.0 H, CBC w Diff NO MAN DIFF REQ, RBC 4.33, MCV 75.0 L , MCH 23.0 L, MCHC 30.6 L, RDW 18.7 H, MPV 7.5, Gran % 53.1, Lymphocytes % 38.4, Monocytes % 6.6, Eosinophils % 1.6, Basophils % 0.3, Absolute Granulocytes 4.6, Absolute Lymphocytes 3.4, Absolute Monocytes 0.6, Absolute Eosinophils 0.1, Absolute Basophils 0 10/08/17 0600: Prot Electrophoresis Pending, Total Protein (PEP) Pending, Albumin % (PEP) Pending, Tdcgw-9-Egesusswk Pending, Nycng-2-Mqxgcymvz Pending, Zkor-5-Ejmahkio Pending, Ynub-0-Ucswfahs Pending, Gamma Globulins Pending, Abnorm Protein Band 1 Pending, Abnorm Protein Band 2 Pending, Abnorm Protein Band 3 Pending 10/07/17 1805: Troponin I < 0.01 Microbiology 10/08 0005 BLOOD: Blood Culture - RECD 10/07 2345 BLOOD: Blood Culture - RES Assessment/Plan Assessment: 82-year-old female with a past medical history significant for asthma/bronchitis , arthritis, congestive heart failure, that is brought in by ambulance from home for complaints of right arm and hand pain and swelling that radiated to her chest. Assessment: 1. Atypical Chest Pain 2. 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 Microcytic Anemia 4. History of CHF 5. Hisotry of Osteoarthritis Plan: * Patient's symptoms of chest pain is likely referred pain. * Given that her ESR and CRP is highly elevated, an inflammatory process is likely which could result in pericarditis, though this seems unlikely at this time. * Would monitor on tele overnight. If stable, she can likely be discontinued off tele. * Rheumatology recommendations noted. * Will start the patient on Prednisone 10mg for 2 days and will taper it rapidly. * SPEP to r/o MM - pending * Her Uric acid level is unimpressive. * The patient will benefit from a bedside commode. She does have an issue with her endurance and she is often unable to reach the bathroom in time. * Diet: Heart Healthy * DVT Prophylaxis: SC Lovenox * Code: Full Code Problem List: 1. Painful swelling of joint Pain Ratin Pain Location: none Pain Goal: Remain pain free Pain Plan: none Tomorrow's Labs & Rationales: Rubén Lee 10/08/17 1135: Attending MD Review Statement Attending Statement Attending MD Statement: examined this patient, discuss w/resident/PA/COMMUNITY ENGAGEMENT MANAGER, agreed w/resident/PA/COMMUNITY ENGAGEMENT MANAGER, discussed with family, reviewed EMR data (avail), discussed with nursing, discussed with case mgmt, reviewed images, amended to note Attending Assessment/Plan: 82 year female past medical history of bronchitis, CHF and arthritis came with atypical chest pain in low to intermediate risk patient. Serial cardiac enzymes negative. Obtain Echo, cardiology consult. Consider stress test as o/p. Arthritis and pain in multipe joints: ESR elavated CRP to rule out any underlying rheumatological process. Rheumatology consulted and follow up labs , f/u xray. Started on prednisone for possible Gout flare up episode. PT eval for dc plannning gi/dvt prophylaxis full code.
[2017-10-08 07:18] VITALS: BP 148/72
[2017-10-08 07:54] LABS: ABSOLUTE BASOPHIL COUNT 0 /CUMM (0.0-0.2); BASOPHIL % 0.3 % (0.0-2.0)
--- NOTE | 2017-10-08 08:15 | Admission Certification ---
Admission Certification Certification Statement - As attending physician, I certify that at the time of - admission, based on clinical presentation, severity of - symptoms, need for further diagnostic testing and - therapeutic interventions, and risk of adverse outcomes - without in-hospital treatment, in my clinical assessment, - this patient requires an acute hospital stay for a minimum - of two nights or longer. I have also considered psychsocial - factors such as support system, advanced age, financial - issues, cognitive issues, and failed out-patient treatments, - past re-admission history, safety of patient, and lack of - compliance as applicable. Specific rationale supporting this admission is: Chest pain, new arthritis symptoms of right hand
[2017-10-08 08:17] LABS: ABSOLUTE EOSINOPHIL COUNT 0.1 /CUMM (0.0-0.7); ABSOLUTE GRANULOCYTE CT 4.6 /CUMM (1.4-6.5); ABSOLUTE LYMPH COUNT 3.4 /CUMM (1.2-3.4); ABSOLUTE MONOCYTE COUNT 0.6 /CUMM (0.10-0.60); EOSINOPHIL % 1.6 % (0-5); GRANULOCYTE % 53.1 % (42.2-75.2); HEMATOCRIT 32.5 % (37-47); MEAN CORPUSCULAR HGB CONC 30.6 G/DL (33.0-37.0); MEAN PLATELET VOLUME 7.5 FL (7.4-10.4); PLATELET COUNT 422 /CUMM (130-400); RBC DISTRIBUTION WIDTH 18.7 % (11.5-14.5); RED BLOOD CELL CT 4.33 /CUMM (4.20-5.40); WHITE BLOOD CELL COUNT 8.7 /CUMM (4.8-10.8)
--- NOTE | 2017-10-08 08:25 | Cons- Rheumatology ---
General Information and HPI Consulting Request Date of Consult: 10/08/17 Requested By: Maria Teresa Hernandez MD Reason for Consult: A weight painful joints especially right wrist Source of Information: patient, family Exam Limitations: no limitations History of Present Illness: This is an 81-year-old female when asked to see in rheumatologic consultation to evaluate her chief complaint of right upper extremity pain. She was admitted yesterday with his pain and questionable chest pain as well so she is admitted to telemetry. The patient states that she has had some pains in her right upper extremity for over a week. However in the past 5 days she's noted particularly painful swelling of her right wrist. There is no history of trauma. She recalls several years ago having similar pain and swelling of her left hand. She was never given the diagnosis of rheumatoid arthritis or gout. Thus far her workup in the hospital reveals a negative rheumatoid factor but a sedimentation rate of 122. wbc count is 10,800 and her hematocrit is 30.0. An x-ray of her hand and wrist is unremarkable. Allergies/Medications Allergies: Coded Allergies: Penicillins (Severe, HIVES 03/06/17) Sulfa (Sulfonamide Antibiotics) (Severe, HIVES 03/06/17) Home Med List: Aspirin (Ecotrin*) 81 MG TABLET.DR 1 TAB PO DAILY HEART HEALTH (Reported) Furosemide (Lasix) 40 MG TABLET 1 TAB PO DAILY CHF (Reported) Ibuprofen 400 MG TABLET 1 TAB PO Q6 PRN hip pain Isosorbide Mononitrate (Isosorbide Mononitrate ER) 30 MG TAB.ER.24H 1 TAB PO DAILY chf Potassium Chloride (K-Tab ER) 10 MEQ TABLET.ER 1 TAB PO DAILY potassium supplement Review of Systems Review of Systems: There is no history of fever or rashes. There is no history of pleuritic chest pain. She denies any GI complaints such as abdominal pain or discolored stool. Past History Travel History Traveled to [place] past 21 day No Medical History Blood Transfusion Hx: No EENT: cataracts, glaucoma Cardiovascular: CHF, hypertension Respiratory: asthma, bronchitis Gastrointestinal: GERD Hepatic: NONE Renal: NONE Musculoskeletal: ARTHRITIS Psychiatric: NONE Endocrine: NONE Blood Disorders: NONE Cancer(s): NONE MEDIA SUPERVISOR/Reproductive: D&C Surgical History Surgical History: non-contributory Psychosocial History Where Do You Live? Home Smoking Status: Former Smoker Exam & Diagnostic Data Vital Signs and I&O Vital Signs Date Time Temp Pulse Resp B/P B/P Pulse O2 O2 Flow FiO2 Mean Ox Delivery Rate 10/08 0718 98.4 94 18 148/72 97 Nasal Cannula 10/08 0128 98.4 94 18 148/72 97 Nasal Cannula 10/07 2307 98.8 78 26 140/90 93 05/ 2213 Nasal 2.0L Cannula 10/07 1945 Nasal 2.0L Cannula / 1700 98.0 80 18 140/86 91 05/ 1533 97.9 76 20 128/64 98 Nasal 2.0L Cannula 05/07 1441 98.0 83 18 137/68 98 Nasal 2.0L Cannula /07 1249 97.6 80 20 157/70 95 Nasal 2.0L Cannula / 1043 97.4 73 20 134/63 97 Nasal 2.0L Cannula / 0910 97.0 77 20 135/63 97 Nasal 2.0L Cannula 10/07 0829 97 Nasal 2.0L Cannula Intake & Output 10/08 1600 10/08 0800 10/08 0000 Intake Total 380 Output Total 500 250 Balance -120 -250 Intake, Oral 380 Number 1 Bowel Movements Output, Urine 500 250 Patient 258 lb Weight Weight Bed scale Measurement Method Physical Exam: On examination she's well-developed well-nourished obese alert intact female sitting at the edge of her bed with her daughter present. Her right hand exhibit some bony enlargement of her right fourth PIP joint but it is not tender. She is unable to complete a fist. DP joints are normal. Her left hand is unremarkable. Pertinent findings are limited to the right wrist with there is definite swelling and warmth and vague redness. Y tender and there is very limited extension and flexion. Her right elbow lacks 15 of full extension but is not tender. No rheumatoid nodules or tophi present there is some limitation of abduction of her right shoulder. Moderate limitation of her cervical spine but tickly when turning to the right side. Her hips have some limited range of motion which could be related to her body habitus. These exhibited no swelling or warmth there's crepitus present indicating osteoarthritis. 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 The x-rays not helpful but they marked elevated sedimentation rate is very impressive. Possibilities include gout or pseudogout although there is no chondrocalcinosis described on her wrist films. His is unlikely to be a septic arthritis of the wrist. The rheumatoid factor is negative but of course this does not rule out rheumatoid arthritis. An anti-CCP antibody is also pending. Recommendations: I would recommend obtaining a serum uric acid level and a C-reactive protein. A serum protein electro's pheresis should be done to rule out myeloma in view of the markedly elevated sedimentation rate. Since she is not diabetic and has no apparent contraindications I place her on a course of prednisone 10 mg twice a day for 2 days to be rapidly tapered while awaiting lab results. Consult Acknowledgment - Thank you for your consult request.
--- NOTE | 2017-10-08 11:48 | RADIOLOGY REPORT ---
EXAMINATION: XR HAND, RIGHT CLINICAL INFORMATION: Pain and nodularity of PIP and MCP. Potential joint effusion, gout. COMPARISON: Right wrist films dated 10/07/2017. TECHNIQUE: PA, lateral, and oblique views of the right hand. 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 Mild overlying soft tissue swelling is seen. There is moderate degenerative change seen at the DIP and PIP joints of the second fourth and fifth digits and at the IP joint of the first digit. Mild degenerative changes also seen at the first carpometacarpal and metacarpophalangeal joint and in the intercarpal joints. No soft tissue tophaceous deposits or calcifications are seen. There may be diffuse soft tissue swelling over the hand and wrist versus patient's body habitus. IMPRESSION: 1. No acute fracture or dislocation. 2. Mild to moderate degenerative changes in the hand and wrist. 3. No tophaceous soft tissue deposits. No erosive change. 4. There may be slight soft tissue swelling over the entire hand, with particular prominence over the amputation stump of the third digit. Clinical correlation requested.
[2017-10-08 14:36] VITALS: BP 134/80
--- NOTE | 2017-10-08 17:36 | Patient Discharge Instructions ---
Discharge Instructions General Discharge Information You were seen/treated for: Chest Pain Arthritis Special Instructions: Please follow up with your PCP and [facility] within one week of discharge. Diet Continue normal diet: Yes Recommended Diet: Heart Healthy Activity Full Activity/No Limits: Yes Activity Self Limited: No Acute Coronary Syndrome Inclusion Criteria At DC or during hospital stay patient has or had the following: ACS DIAGNOSIS No Discharge Core Measures Meds if any: Prescribed or Continued at Discharge Meds if any: NOT Prescribed or Continued at Discharge Congestive Heart Failure Inclusion Criteria At DC or during hospital stay patient has or had the following: CHF DIAGNOSIS No Discharge Core Measures Meds if any: Prescribed or Continued at Discharge Meds if any: NOT Prescribed or Continued at Discharge Cerebrovascular accident Inclusion Criteria At DC or during hospital stay patient has or had the following: CVA/TIA Diagnosis No Discharge Core Measures Meds if any: Prescribed or Continued at Discharge Meds if any: NOT Prescribed or Continued at Discharge Venous thromboembolism Inclusion Criteria VTE Diagnosis No VTE Type NONE VTE Confirmed by (Test) NONE Discharge Core Measures - Per Current guidelines, there needs to be overlap - treatment for the first 5 days of Warfarin therapy. - If discharged on Warfarin prior to 5 days of - overlap therapy, the patient will need to be - assessed for post discharge needs including - *Post discharge parental anticoagulation - *Warfarin and/or parental anticoagulation education - *Follow up date to check INR post discharge At least 5 days overlap therapy as Inpatient No Meds if any: Prescribed or Continued at Discharge Note: Overlap Therapy is Warfarin and Anticoagulant Meds if any: NOT Prescribed or Continued at Discharge
[2017-10-08 22:06] VITALS: BP 132/84
[2017-10-09 07:21] VITALS: BP 128/64
[2017-10-09 07:55] VITALS: BP 128/64
--- NOTE | 2017-10-09 08:09 | PN- Housestaff ---
John GAMBOA,[facility] 10/09/17 0809: Subjective Follow-up For: Arthritis Chest Pain Complaints: no complaints Tele-Events Since Last Visit: NSR with HR 73-105. No overnight events. Subjective: Reports feeling better. She has better range of motion of her right hand today and is able to make a fist which she was unable to do so yesterday. No more chest pain. Review of Systems Constitutional: Reports: no symptoms. Objective Last 24 Hrs of Vital Signs/I&O Vital Signs Date Time Temp Pulse Resp B/P B/P Pulse O2 O2 Flow FiO2 Mean Ox Delivery Rate 10/09 0755 128/64 10/09 0721 97.5 84 20 128/64 97 Room Air 10/08 2220 Nasal 2.0L Cannula 10/08 2206 98.0 78 20 132/84 96 10/08 1436 97.8 88 20 134/80 95 Nasal 2.0L Cannula Intake & Output 10/09 1600 10/09 0800 10/09 0000 Intake Total 240 300 Output Total 400 600 Balance -160 -300 Intake, Oral 240 300 Output, Urine 400 600 Patient 253 lb Weight Physical Exam General Appearance: Alert, Oriented X3, Cooperative, Mild Distress Skin: No Rashes, No Breakdown Skin Temp/Moisture Exam: Warm/Dry Sepsis Skin Exam (color): Normal for Ethnicity HEENT: Atraumatic Cardiovascular: Normal S1, Normal S2, No Murmurs Lungs: Normal Air Movement Abdomen: Soft, No Tenderness Neurological: Normal Speech Extremities: bilateral 1+ lower extremity edema, improved ROM of her right shoulder and wrist. She is able to make a fist today. Decreased swelling. Trace erythema Assessment/Plan Assessment: 82-year-old female with a past medical history significant for asthma/bronchitis , arthritis, congestive heart failure, that is brought in by ambulance from home for complaints of right arm and hand pain and swelling that radiated to her chest. Assessment: 1. Atypical Chest Pain 2. 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 Microcytic Anemia 4. History of CHF 5. Hisotry of Osteoarthritis Plan: * Patient's symptoms of chest pain was likely referred pain. No further episodes. * Echocardiogram with normal LVEF. No abnormalities. * She is stable to be discharged today. * Her symptoms of joint pain are significantly improved. * Will her on Prednisone 10mg BID tonight and will taper it rapidly as outpatient. * SPEP to r/o MM - pending * The patient will benefit from a bedside commode. She does have an issue with her endurance and she is often unable to reach the bathroom in time. * Diet: Heart Healthy * DVT Prophylaxis: SC Lovenox * Code: Full Code Problem List: 1. Painful swelling of joint Pain Ratin Pain Location: none Pain Goal: Remain pain free Pain Plan: none Tomorrow's Labs & Rationales: none Rubén Fletcher 10/09/17 1125: Attending MD Review Statement Attending Statement Attending MD Statement: examined this patient, discuss w/resident/PA/PRODUCT ENGINEERING MANAGER, agreed w/resident/PA/PRODUCT ENGINEERING MANAGER, discussed with family, reviewed EMR data (avail), discussed with nursing, discussed with case mgmt, reviewed images, amended to note Attending Assessment/Plan: Patient seen/examined bedside. No new complaints. Her wrist pain and swelling is improved since admisison. Rheumatology consulted and she needs to follow up with Dr Kevin. She is being dsicharged on oral prednsion taper. Her atypical chest pain if recurrs consider outpatient stress test. Follow up with PCP in 1 week of dsicharge.
[2017-10-09 08:11] LABS: ABSOLUTE BASOPHIL COUNT 0 /CUMM (0.0-0.2); ABSOLUTE EOSINOPHIL COUNT 0 /CUMM (0.0-0.7); ABSOLUTE GRANULOCYTE CT 6.4 /CUMM (1.4-6.5); ABSOLUTE LYMPH COUNT 1.9 /CUMM (1.2-3.4); ABSOLUTE MONOCYTE COUNT 0.4 /CUMM (0.10-0.60); BASOPHIL % 0.3 % (0.0-2.0); EOSINOPHIL % 0.1 % (0-5); GRANULOCYTE % 72.9 % (42.2-75.2); HEMATOCRIT 32.6 % (37-47); MEAN CORPUSCULAR HGB 22.9 PG (27.0-31.0); MEAN CORPUSCULAR HGB CONC 30.5 G/DL (33.0-37.0); MEAN PLATELET VOLUME 7.8 FL (7.4-10.4); PLATELET COUNT 435 /CUMM (130-400); RBC DISTRIBUTION WIDTH 18.5 % (11.5-14.5); RED BLOOD CELL CT 4.34 /CUMM (4.20-5.40); WHITE BLOOD CELL COUNT 8.7 /CUMM (4.8-10.8)
[2017-10-09] MEDS ORDERED: FERROUS SULFAT325 M3 PO ×2 (08:52→10:47)
[2017-10-09] MEDS ORDERED: PREDNISONE10 M2 PO ×2 (09:00→10:47)
--- NOTE | 2017-10-09 11:50 | ECHOCARDIOGRAM REPORT ---
MEHRAN SCHAFFER Age: 82 : 1935 Gender: F Exam Date: 10/08/2017 18:57 Exam Location: [place] Ht (in): 61 Wt (lb): 260 BSA: 2.33 BP: 148 / 72 Ordering Physician: Ashley Yanes MD Referring Physician: Ashley Yanes MD Technologist: Tammy Herrera [facility] Room Number: 181 Indications: CHEST PAIN Rhythm: Sinus Technical Quality: Fair FINDINGS Left Ventricle Normal size left ventricle. No obvious regional wall motion abnormalities. Left ventricular wall thickness increased. Normal left ventricular ejection fraction estimated at 55-60%. Right Ventricle Normal right ventricular size and function. Right Atrium Normal right atrial size. Left Atrium Left atrial size at the upper limits of normal. Mitral Valve Mitral valve thickened. Mild mitral annular calcification. Trace mitral regurgitation. Aortic Valve Trileaflet aortic valve. Focal thickening of the aortic valve cusps. No aortic stenosis. No aortic regurgitation. Tricuspid Valve Tricuspid valve not well visualized, grossly normal. Mild tricuspid regurgitation. Right ventricular systolic pressure estimated at 30 mmHg. Pulmonic Valve Pulmonic valve not well visualized, grossly normal. Pericardium Small pericardial effusion. Great Vessels Normal size aortic root and proximal ascending aorta. CONCLUSIONS 1. This was a technically difficult examination. 2. Minimal aortic sclerosis is present with no valvular stenosis or insufficiency. 3. Mitral leaflet thickening is present with mild anular calcification and minimal mitral insufficiency. 4. A very small pericardial effusion is present which is hemodynamically insignificant. 5. The left ventricular chamber size and systolic function are normal with mild concentric hypertrophy and no resting wall motion abnormalities 6. Mild tricuspid insufficiency is present with no evidence of pulmonary hypertension. 7. Moderator band hypertrophy is present which is of no clinical significance. Manuel Wayne M.D. (Electronically Signed) Final Date: 09 Oct 2017 11:49 MEASUREMENTS (Male / Female) Normal Values 2D ECHO LV Diastolic Diameter PLAX 5.0 cm 4.2 - 5.9 / 3.9 - 5.3 cm LV Systolic Diameter PLAX 2.4 cm 2.1 - 4.0 cm LV Fractional Shortening PLAX 52.0 % 25 - 46 % LV Ejection Fraction 2D Teich 83.0 % IVS Diastolic Thickness 1.3 cm LVPW Diastolic Thickness 1.3 cm LV Relative Wall Thickness 0.5 RV Internal Dim ED PLAX 2.8 cm 1.9 - 3.8 cm LVOT Diameter 2.2 cm Aortic Root Diameter 2.8 cm LA Systolic Diameter LX 3.7 cm 3.0 - 4.0 / 2.7 - 3.8 cm LA Volume 34.0 cm 18 - 58 / 22 - 52 cm Ascending Aorta Diameter 2.9 cm DOPPLER AV Peak Velocity 167.0 cm/s AV Peak Gradient 11.2 mmHg AV Mean Velocity 114.0 cm/s AV Mean Gradient 6.0 mmHg AV Velocity Time Integral 32.2 cm LVOT Peak Velocity 118.0 cm/s LVOT Peak Gradient 5.6 mmHg LVOT Mean Velocity 72.4 cm/s LVOT Mean Gradient 3.0 mmHg LVOT Velocity Time Integral 29.7 cm LVOT Stroke Volume 112.9 cm AV Area Cont Eq vti 3.5 cm AV Area Cont Eq pk 2.7 cm MV Peak Velocity 133.0 cm/s MV Peak Gradient 7.1 mmHg MV Mean Velocity 71.5 cm/s MV Mean Gradient 2.0 mmHg Mitral E Point Velocity 91.3 cm/s Mitral A Point Velocity 125.0 cm/s Mitral E to A Ratio 0.7 MV PHT Velocity 101.0 cm/s MV Deceleration Frederick 280.0 cm/s MV Pressure Half Time 108.2 ms MV Area PHT 2.0 cm MV Deceleration Time 312.0 ms TR Peak Velocity 258.0 cm/s TR Peak Gradient 26.6 mmHg Right Atrial Pressure 5.0 mmHg Pulmonary Artery Systolic Pressu 31.6 mmHg Right Ventricular Systolic Press 31.6 mmHg PV Peak Velocity 116.0 cm/s PV Peak Gradient 5.4 mmHg PV Mean Velocity 75.4 cm/s PV Mean Gradient 3.0 mmHg PV Velocity Time Integral 28.0 cm LV E' Lateral Velocity 11.8 cm/s Mitral E to LV E' Lateral Ratio 7.7 LV E' Septal Velocity 6.0 cm/s Mitral E to LV E' Septal Ratio 15.1
--- NOTE | 2017-10-09 11:53 | Discharge Summary ---
Visit Information Visit Dates Admission Date: 10/07/17 Discharge Date: 10/09/17 Hospital Course Course Attending Physician: Rubén Fletcher MD Primary Care Physician: Patel GAMBOA,Esa Ernandez Hospital Course: Ms Gibson is a pleasant 82 year old female with a past medical history significant for asthma, osteoarthritis and congestive heart failure who was brought in by ambulance from home with complaints of right arm and hand pain and swelling that radiated to her chest. Below is a list of problems that were addressed during her hospital stay. 1. Chest Pain 2. 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 Microcytic Anemia Chest Pain: Patient was admitted to the telemetry unit for monitoring of her heart rhythm. She was ruled out for ACS with serial troponins and EKGs. She had an Echocardiogram which showed normal LVEF and no abnormalities. Acute Inflammatory Monoarticular Arthritis: On admission patient had imaging of her right upper extremity which showed no acute fracture, dislocation or joint effusion. Though she did have mild to moderate degenerative changes in the hand and wrist. Her inflammatory markers were significanly elevated; ESR 122, CRP >9. She was evaluated by Rheumatology. Some of her lab studies are pending at this time and she has been recommended to follow up with her Hoof Trimmer within one week of discharge to complete her evaluation. Microcytic Anemia: Her labs show a low H&H and MCV with iron studies suggestive of iron deficiency anemia. She was started on oral ferrous sulphate supplementation which she has been advised to continue. The patient does mention that she has a history of anemia and has been on/off therapy with iron supplementation. 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 Mild overlying soft tissue swelling is seen. There is moderate degenerative change seen at the DIP and PIP joints of the second fourth and fifth digits and at the IP joint of the first digit. Mild degenerative changes also seen at the first carpometacarpal and metacarpophalangeal joint and in the intercarpal joints. No soft tissue tophaceous deposits or calcifications are seen. There may be diffuse soft tissue swelling over the hand and wrist versus patient's body habitus. IMPRESSION: 1. No acute fracture or dislocation. 2. Mild to moderate degenerative changes in the hand and wrist. 3. No tophaceous soft tissue deposits. No erosive change. 4. There may be slight soft tissue swelling over the entire hand, with particular prominence over the amputation stump of the third digit. Clinical correlation requested. SERVICE DATE: 10/07/17 EXAM TYPE: CARD - ECHOCARDIOGRAM FINDINGS Left Ventricle Normal size left ventricle. No obvious regional wall motion abnormalities. Left ventricular wall thickness increased. Normal left ventricular ejection fraction estimated at 55-60%. Right Ventricle Normal right ventricular size and function. Right Atrium Normal right atrial size. Left Atrium Left atrial size at the upper limits of normal. Mitral Valve Mitral valve thickened. Mild mitral annular calcification. Trace mitral regurgitation. Aortic Valve Trileaflet aortic valve. Focal thickening of the aortic valve cusps. No aortic stenosis. No aortic regurgitation. Tricuspid Valve Tricuspid valve not well visualized, grossly normal. Mild tricuspid regurgitation. Right ventricular systolic pressure estimated at 30 mmHg. Pulmonic Valve Pulmonic valve not well visualized, grossly normal. Pericardium Small pericardial effusion. Great Vessels Normal size aortic root and proximal ascending aorta. CONCLUSIONS 1. This was a technically difficult examination. 2. Minimal aortic sclerosis is present with no valvular stenosis or insufficiency. 3. Mitral leaflet thickening is present with mild anular calcification and minimal mitral insufficiency. 4. A very small pericardial effusion is present which is hemodynamically insignificant. 5. The left ventricular chamber size and systolic function are normal with mild concentric hypertrophy and no resting wall motion abnormalities 6. Mild tricuspid insufficiency is present with no evidence of pulmonary hypertension. 7. Moderator band hypertrophy is present which is of no clinical significance. SERVICE DATE: 10/07/17 EXAM TYPE: CAT - CTA CHEST-PULMONARY EMBOLISM FINDINGS: Pulmonary arteries: The bolus timing on this study was acceptable for visualization of the pulmonary arterial tree. There are no intraluminal pulmonary arterial filling defects present to suggest pulmonary embolism in the main pulmonary artery, right and left main pulmonary artery, lobar and segmental branches. Lungs: No pulmonary nodules, masses, pleural effusion or pneumothorax. Concavity of the membranous portion of the upper thoracic trachea is seen, perhaps related to imaging in the expiratory phase. The central airways are otherwise patent. There are patchy groundglass opacities seen in the inferior right middle lobe, lingula, and in both lower lobes, possibly due to incomplete lung expansion and atelectatic change. Findings may also be reflective of mild alveolar edema. No dense consolidation, pleural effusion or pneumothorax is seen. Aorta and heart: Four-chamber enlargement of the heart is seen. There is no pericardial effusion. Mild atherosclerotic calcifications of the aorta seen. Main, right and left pulmonary arteries are enlarged. The main pulmonary artery measures 3.4 cm in maximal diameter as compared to the ascending aorta, which measures 3.1 cm, raising the suspicion of pulmonary arterial hypertension. Lymphatic structures: There is no lymphadenopathy. Calcified right hilar lymph node and right upper paratracheal lymph node are seen. Upper abdomen: Limited evaluation of the upper abdominal viscera demonstrates no focal abnormality. Bones: Moderate degenerative changes throughout the thoracal lumbar spine with disc disease and vertebral spurring seen. IMPRESSION: 1. No evidence of pulmonary embolism. 2. Patchy areas of groundglass opacities seen in the mid and lower lungs bilaterally in a predominantly dependent location, suggestive of incomplete lung expansion and atelectatic change. Subtle alveolar edema cannot be entirely excluded, but is felt to be less likely. No focal pneumonia is seen. 3. Four-chamber enlargement of the heart. 4. Enlarged central pulmonary arteries, suspicious for pulmonary arterial hypertension. 5. Evidence of prior granulomatous disease with calcified mediastinal and right hilar lymph nodes seen. SERVICE DATE: 10/07/17 EXAM TYPE: RAD - XRY-ELBOW 3 OR MORE VIEWS, R; XRY-WRIST COMPLETE-RIGHT FINDINGS: Elbow: There is no evidence of fracture, dislocation, or elbow joint effusion. The joint spaces are fairly well-maintained. Alignment appears anatomic. Mild subchondral spurring involving the proximal ulna. The soft tissues appear unremarkable. Wrist: There is no evidence of fracture or dislocation. The bones appear somewhat demineralized. Alignment is anatomic. There are moderate degenerative changes at the first CMC. There are degenerative changes at the PIP and DIP joints as well as the first MCP. IMPRESSION: There is no evidence of fracture or dislocation involving the right elbow or wrist. No evidence of right elbow joint effusion. SERVICE DATE: 10/07/17 EXAM TYPE: RAD - XRY-CHEST XRAY, TWO VIEWS FINDINGS: Given differences in technique, cardiomegaly appears stable. There is stable unfolding of the thoracic aorta. There remains mild central pulmonary vascular and perihilar prominence, similar to the prior. There is overlapping soft tissue at the lung bases without definitive pleural effusion visualized. No pneumothorax. There are multilevel degenerative changes of the spine without evidence of interval compression deformity or other acute osseous abnormality. IMPRESSION: Mild central pulmonary vascular/perihilar prominence in the setting of cardiomegaly appears stable from 07/26/2017, and may be reflective of mild volume overload. 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 Medications at Discharge Discharge Medications: Continue taking these medications: Furosemide (Lasix) 40 MG TABLET 1 Tablet ORAL DAILY Comments: Last Taken: 10/09/17 Time: 0800 Aspirin (Ecotrin*) 81 MG TABLET.DR 1 Tablet ORAL DAILY Comments: Last Taken: 10/09/17 Time: 0800 Potassium Chloride (K-Tab ER) 10 MEQ TABLET.ER 1 Tablet ORAL DAILY Qty = 30 Comments: Isosorbide Mononitrate (Isosorbide Mononitrate ER) 30 MG TAB.ER.24H 1 Tablet ORAL DAILY Qty = 30 Comments: Last Taken: 10/09/17 Time: 0800 Ibuprofen (Ibuprofen) 400 MG TABLET 1 Tablet ORAL EVERY SIX HOURS as needed for hip pain Qty = 40 Start taking the following new medications: Prednisone (Prednisone) 10 MG TABLET 1 Tablet ORAL DAILY Qty = 5 No Refills Comments: Please take one tablet of Prednisone 10mg tonight (10/09/17) Take one table of Prednisone 10mg on 10/10/17 and 10/11/17 Then take half tablet of Prednisone 10mg on 10/12/17 and 10/13/17 Ferrous Sulfate (Ferrous Sulfate) 325 MG (65 MG IRON) TABLET 1 Tablet ORAL DAILY Qty = 30 No Refills Copies To: Patel GAMBOA,Esa Ernandez; Herberth GAMBOA,Erasmo Tong; Juan GAMBOA,Rossy Attending MD Review Statement Documenting Attending: Justine GAMBOA,Rubén Other Findings: Her wrist pain and swelling is improved since admisison. Rheumatology consulted and she needs to follow up with Dr Kevin. She is being dsicharged on oral prednsion taper. Her atypical chest pain if recurrs consider outpatient stress test. Follow up with PCP in 1 week of dsicharge.
== END 2017-10-09 13:05 | disposition home health service (06) | DRG 554 ==
LOC: ERH 06:56 → ERHI 14:33 → 1NO 14:33 → ENTRNSPT 16:17 → EDTRNSPTSTS 16:30 → 1NO 16:43 → CMPTRNSPT 16:49 → 1NO 16:50 → ENPENDDIS 10-09 10:52 → 1NO 10-09 13:05
PROVIDERS: Internal Medicine; Physician Assistant Medical; Student in an Organized Health Care Education/Training Program
DX: M13.831 Other specified arthritis, right wrist (principal); I11.0 Hypertensive heart disease with heart failure; I50.9 Heart failure, unspecified; Z68.42 Body mass index [BMI] 45.0-49.9, adult; E66.9 Obesity, unspecified; Z88.0 Allergy status to penicillin; Z88.2 Allergy status to sulfonamides; Z79.82 Long term (current) use of aspirin; Z79.52 Long term (current) use of systemic steroids; D50.9 Iron deficiency anemia, unspecified; R07.89 Other chest pain
CPT/HCPCS: 1NP; 36415; 36592; 71046; 73080-RT; 73110-RT; 73130-RT; 82436; 84165; 86431; 87040; 93005; 93010; 93306; 96374; 96375; 97110-GO; 97116-GO; 97161-GP; 97166-GO; J0131; J1650; J1940; J7512

== ENCOUNTER 2018-01-17 08:54 | Inpatient (IN) | payer OTHER, MEDICARE ==
[~2018-01-17] VITALS: Ht 157.5 cm; Wt 90.8 kg
[~2018-01-17 08:54] MED LIST changes: +FERROUS SULFAT325 M3 PO; +PREDNISONE10 M2 PO
--- NOTE | 2018-01-17 09:35 | RADIOLOGY REPORT ---
EXAMINATION: XR CHEST CLINICAL INFORMATION: Chest pain with history of congestive heart failure. COMPARISON: Chest x-ray 10/07/2017. TECHNIQUE: Frontal and lateral views of the chest were obtained. FINDINGS: The lung rob are moderately well-expanded bilaterally. There is no focal consolidation. The study redemonstrates cardiomegaly, which appears stable. There is unfolding of the aortic arch. There are no pleural effusions. There is mild prominence of the central pulmonary vasculature and there is mild perihilar prominence. There are multilevel spondylitic changes in the thoracic spine with narrowing of intervertebral disc height and marginal osteophytes. No acute osseous findings. IMPRESSION: 1. The study redemonstrates cardiomegaly, and prominence of the central pulmonary vasculature and perihilar regions, consistent with congestive heart failure versus fluid overload. 2. There is no focal consolidation.
--- NOTE | 2018-01-17 11:09 | ED CARDIAC/CP/PALPITATIONS ---
History of Present Illness General Chief Complaint: Chest Pain Stated Complaint: HEART BURN / ? CP X 2DAYS Source: patient, family Exam Limitations: no limitations Allergies Coded Allergies: Penicillins (Severe, HIVES 03/06/17) Sulfa (Sulfonamide Antibiotics) (Severe, HIVES 03/06/17) Reconcile Medications Furosemide (Lasix) 40 MG TABLET 1 TAB PO DAILY CHF (Reported) Furosemide 40 MG TABLET 1.5 TAB PO DAILY PRN WATER (Reported) Ibuprofen 400 MG TABLET 1 TAB PO Q6 PRN hip pain Isosorbide Mononitrate (Isosorbide Mononitrate ER) 30 MG TAB.ER.24H 1 TAB PO DAILY chf Lansoprazole (Prevacid) 15 MG TAB.RAP.DR 1 TAB PO DAILY GI (Reported) place on top of the tongue let dissolve, then swallow Potassium Chloride (K-Tab ER) 10 MEQ TABLET.ER 1 TAB PO DAILY potassium supplement Triage Note: 82F REPORTS CP X2 DAYS, THOUGHT IT WAS ACID INDIGESTION BUT SYMPTOMS UNRELIEVED BY PREVACID AND NOW PAIN RADIATES TO UPPER THORACIC BACK. TAKEN TO EKG [facility] IMMEDIATELY ON ARRIVAL Triage Nurses Notes Reviewed? yes Onset: Gradual Duration: day(s): Timing: recent history Quality/Severity: moderate HPI: 82yo female with hx of gastritis, CHF, DM, HTN, asthma presents to ED complaining of bilateral chest pain x 2-3 days. Pain is worse with laying flat and improved with sitting upright. Patient describes pain as radiating from right shoulder across bilateral chest, burning sensation. She states the pain feels similar to episodes of indigestion/gastritis. Taken NSAIDs as well as her nitroglycerin which have relieved her pain. Currently pain is described as 5/ 10. Patient reports bilateral lower extremity swelling which may have worsened today. She reports dyspnea on exertion which she feels is stable. Patient states she had a cough a few days ago which has since resolved. She sees a property loss insurance claim adjuster in [place]. The patient denies hemopytsis, nauea, vomiting diarrhea. (Hansa MENDOZA,[place] Ch) Vital Signs & Intake/Output Vital Signs & Intake/Output Vital Signs Date Time Temp Pulse Resp B/P B/P Pulse O2 O2 Flow FiO2 Mean Ox Delivery Rate 01/17 1135 98 Room Air Room Air 01/17 1132 96.5 60 18 147/67 98 Room Air (Marielos GAMBOA,Jorge Tong) Past History Travel History Traveled to [place] past 21 day No Medical History Any Pertinent Medical History? see below for history Neurological: NONE EENT: cataracts, glaucoma Cardiovascular: CHF, hypertension Respiratory: asthma, bronchitis Gastrointestinal: GERD Hepatic: NONE Renal: NONE Musculoskeletal: ARTHRITIS Psychiatric: NONE Endocrine: NONE Blood Disorders: NONE Cancer(s): NONE REFRIGERATION SUPERVISOR/Reproductive: D&C History of MRSA: No History of VRE: No History of CDIFF: No Surgical History Surgical History: non-contributory Psychosocial History Who do you live with Family What is your primary language Romanian Tobacco Use: Refused to answer Family History Hx Contributory? No (Af[place] Villeda) Review of Systems Review of Systems Constitutional: Reports: no symptoms. EENTM: Reports: no symptoms. Respiratory: Reports: see HPI. Cardiovascular: Reports: see HPI. GI: Reports: no symptoms. Genitourinary: Reports: no symptoms. Musculoskeletal: Reports: no symptoms. Skin: Reports: no symptoms. Neurological/Psychological: Reports: no symptoms. Hematologic/Endocrine: Reports: no symptoms. Immunologic/Allergic: Reports: no symptoms. All Other Systems: Reviewed and Negative ([place] Villeda) Physical Exam Physical Exam General Appearance: well developed/nourished, no apparent distress, alert, awake Head: atraumatic, normal appearance Eyes: Bilateral: normal appearance. Ears, Nose, Throat: hearing grossly normal Neck: normal inspection, supple, full range of motion Respiratory: normal breath sounds, no respiratory distress, lungs clear Cardiovascular: regular rate/rhythm Peripheral Pulses: 2+ radial (R), 2+ radial (L) Gastrointestinal: normal bowel sounds, soft, non-tender, no organomegaly Back: normal inspection, normal range of motion Extremities: 2+ pitting edema bilaterally Neurologic/Psych: awake, alert, oriented x 3 Skin: intact, normal color, warm/dry Core Measures ACS in differential dx? Yes CVA/TIA Diagnosis No Sepsis Present: No Sepsis Focused Exam Completed? No ([place] Villeda) Progress Differential Diagnosis: AMI, atrial fibrillation, CHF/pulm edema, costochondritis, hyperventilation, musculoskeletal pain, myocarditis, pericarditis, pneumonia, pneumothorax, PSVT, pulmonary embolism, unstable angina Plan of Care: Orders Procedure Date/time Status CBC WITHOUT DIFFERENTIAL 01/18 0600 Active BASIC ELECTROLYTES PLUS BUN&CR 01/18 0600 Active Heart Healthy Diet 01/17 L Complete Heart Healthy Diet 01/17 D Active TROPONIN LEVEL 01/17 2100 Active EKG 01/17 2100 Active TROPONIN LEVEL 01/17 1500 Active EKG 01/17 1500 Active Pathway - chart 01/17 1356 Active Patient Data 01/17 1356 Active Patient Data 01/17 1231 Active ED Holding Orders 01/17 1212 Active Admit to inpatient 01/17 1212 Active Vital Signs 01/17 1212 Active Code Status 01/17 1212 Active Intake & Output 01/17 0903 Active TROPONIN LEVEL 01/17 0903 Complete PARTIAL THROMBOPLASTIN TIME 01/17 0903 Complete PROTHROMBIN TIME 01/17 0903 Complete COMPREHENSIVE METABOLIC PANEL 01/17 0903 Complete CBC WITHOUT DIFFERENTIAL 01/17 0903 Complete B-TYPE NATRIURETIC PEP (BNP) 01/17 0903 Complete EKG 01/17 0856 Active Saline Lock 01/17 UNK Active House Staff 01/17 UNK Active VTE Mechanical Prophylaxis 01/17 UNK Active Vital Signs 01/17 UNK Active Telemetry/Sole Rounder 01/17 UNK Active Intake & Output 01/17 UNK Active Activity/Ambulation 01/17 UNK Active Laboratory Tests 01/17/18 1121: Anion Gap 7, Estimated GFR > 60, BUN/Creatinine Ratio 27.1 H, Glucose 103 H, Calcium 9.2, Total Bilirubin 0.1 L, AST 17, ALT 19, Alkaline Phosphatase 97, Troponin I < 0.01, Hnj-[id number]-Rejbqkuqddg Pept 136 H, Total Protein 7.8, Albumin 3.5 , Globulin 4.3 H, Albumin/Globulin Ratio 0.8 L, PT 12.6 H, INR 1.15, APTT 29, CBC w Diff NO MAN DIFF REQ, RBC 4.39, MCV 75.5 L, MCH 23.6 L, MCHC 31.3 L, RDW 18.8 H, MPV 7.5, Gran % 56.0, Lymphocytes % 34.7, Monocytes % 6.9, Eosinophils % 2.4, Basophils % 0, Absolute Granulocytes 4.3, Absolute Lymphocytes 2.6, Absolute Monocytes 0.5, Absolute Eosinophils 0.2, Absolute Basophils 0 Patient's chest x-ray shows CHF, her EKG is stable, sinus rhythm. Troponin enzyme negative. Patient does have pedal edema and her symptoms are worse with lying flat. Patient medicated with IV Lasix. Given her continued chest pain aspirin 325 mg was administered. Case management recommend full admission. Dr. Arceo spoke with hospitalist regarding this patient's telemetry admission. Diagnostic Imaging: Viewed by Me: Radiology Read. Discussed w/RAD: Radiology Read. CXR Impression: PATIENT: MEHRNA SCHAFFER PRESENT AGE: 82 PATIENT ACCOUNT NO: [id number] : 35 LOCATION: [facility] ORDERING PHYSICIAN: Jorge Arceo MD SERVICE DATE: 01/17/18 EXAM TYPE: RAD - XRY-CHEST XRAY, TWO VIEWS EXAMINATION: XR CHEST CLINICAL INFORMATION: Chest pain with history of congestive heart failure. COMPARISON: Chest x-ray 10/07/2017. TECHNIQUE: Frontal and lateral views of the chest were obtained. FINDINGS: The lung rob are moderately well-expanded bilaterally. There is no focal consolidation. The study redemonstrates cardiomegaly, which appears stable. There is unfolding of the aortic arch. There are no pleural effusions. There is mild prominence of the central pulmonary vasculature and there is mild perihilar prominence. There are multilevel spondylitic changes in the thoracic spine with narrowing of intervertebral disc height and marginal osteophytes. No acute osseous findings. IMPRESSION: 1. The study redemonstrates cardiomegaly, and prominence of the central pulmonary vasculature and perihilar regions, consistent with congestive heart failure versus fluid overload. 2. There is no focal consolidation. DICTATED BY: Odin Santos MD DATE/TIME DICTATED:01/17/18927 CARD FIXER:LADONNA DATE/TIME TRANSCRIBED:01/17/18927 CONFIDENTIAL, DO NOT COPY WITHOUT APPROPRIATE AUTHORIZATION. <Electronically signed in Other Vendor System> SIGNED BY: Odin Santos MD 01/17/18 0967 Initial ED EKG: sinus rhythm @76bpm, RBBB, LAFB, nonspecific ST changes Prior EKG: unchanged (10/07/17) ([place] Villeda) Departure Departure Referrals: Patel GAMBOA,Esa Ernandez (PCP/Family) Departure Forms: Customer Survey General Discharge Information ([place] Villeda) Departure Disposition: STILL A PATIENT Condition: Fair Clinical Impression Primary Impression: Pulmonary edema Secondary Impressions: ACS (acute coronary syndrome) Admission Note Spoke With: Justine GAMBOA,Rubén Documentation of Exam: Documentation of any treatments & extenuating circumstances including Concerns Regarding Discharge (functional status, medication knowledge or non-compliance, living conditions, etc.) that warrant an admission rather than observation: [ Telemetry admission for serial enzymes, IV diuresis, telemetry monitoring, cardiology consultation, repeat echocardiogram] PA/STATE TESTED NURSING ASSISTANT Co-Sign Statement Statement: ED Attending supervision documentation- [X] I saw and evaluated the patient. I have also reviewed all the pertinent lab results and diagnostic results. I agree with the findings and the plan of care as documented in the PA's/STATE TESTED NURSING ASSISTANT's documentation. [X] I have reviewed the ED Record and agree with the PA's/STATE TESTED NURSING ASSISTANT's documentation. [] Additions or exceptions (if any) to the PAs/STATE TESTED NURSING ASSISTANT's note and plan are summarized below: [See above note] (Marielos GAMBOA,Jorge Tong) Critical Care Note Critical Care Note Critical Care Time: 30-74 min (Hansa MENDOZA,[place] Ch)
[2018-01-17 11:36] LABS: ABSOLUTE BASOPHIL COUNT 0 /CUMM (0.0-0.2); ABSOLUTE EOSINOPHIL COUNT 0.2 /CUMM (0.0-0.7); ABSOLUTE GRANULOCYTE CT 4.3 /CUMM (1.4-6.5); ABSOLUTE LYMPH COUNT 2.6 /CUMM (1.2-3.4); ABSOLUTE MONOCYTE COUNT 0.5 /CUMM (0.10-0.60); BASOPHIL % 0 % (0.0-2.0); EOSINOPHIL % 2.4 % (0-5); HEMATOCRIT 33.1 % (37-47); MEAN CORPUSCULAR HGB 23.6 PG (27.0-31.0); MEAN CORPUSCULAR HGB CONC 31.3 G/DL (33.0-37.0); MEAN CORPUSCULAR VOLUME 75.5 FL (81.0-99.0); MEAN PLATELET VOLUME 7.5 FL (7.4-10.4); PLATELET COUNT 367 /CUMM (130-400); RBC DISTRIBUTION WIDTH 18.8 % (11.5-14.5); RED BLOOD CELL CT 4.39 /CUMM (4.20-5.40); WHITE BLOOD CELL COUNT 7.6 /CUMM (4.8-10.8)
[2018-01-17 11:42] LABS: PT 12.6 SEC (9.4-12.5); PTT 29 SEC (25-37)
[2018-01-17] MEDS ORDERED: FUROSEMIDE40 M1 PO (12:02)
[2018-01-17] MEDS ORDERED: PREVACID15 M2 PO (12:02)
--- NOTE | 2018-01-17 12:39 | History & Physical ---
Alize Monte 01/17/18 1239: General Information and HPI MD Statement: I have seen and personally examined MEHRAN SCHAFFER and documented this H&P. The patient is a 82 year old F who presented with a patient stated chief complaint of [chest pain]. Source of Information: patient Exam Limitations: no limitations History of Present Illness: Ms Schaffer is a 82-year-old female with past medical history significant for asthma/bronchitis, arthritis, hypertension, anemia, heart failure with preserved ejection fraction came in today with chief complaint of chest pain. Currently the chest pain started 1 week prior to today's presentation, she felt a feeling of indigestion and there was pressure across her chest, she tried taking some ibuprofen and xulm-zkw-eyezmcn antacids and she felt better however on Saturday, which is 4 days prior to today's presentation she was cleaning up her room and she fell against the table and tipped forward and hit against her chest after which her chest pain has been worsening. She then described the pain offered the fall to be a sharp pain 7 out of 10, constantly there, it initially started in the substernal location but then it spread on the right side as well as all across the chest, continued to worsen and fell like a soreness. At times she also felt a pressure kind of pain. She said that it was difficult for her to lie flat because of the pain, and the pain was then radiating to the right shoulder. She tried taking some [id number] ibuprofen, which did not help much. She was recently admitted to [facility] from 5[facility] 10/09/2017, was ruled out for ACS, had an echocardiogram with normal EF and was treated for acute inflammatory monoarthritis and microcytic anemia. Allergies/Medications Allergies: Coded Allergies: Penicillins (Severe, HIVES 03/06/17) Sulfa (Sulfonamide Antibiotics) (Severe, HIVES 03/06/17) Home Med list Furosemide 40 MG TABLET 1.5 TAB PO DAILY PRN WATER (Reported) Ibuprofen 400 MG TABLET 1 TAB PO Q6 PRN hip pain Isosorbide Mononitrate (Isosorbide Mononitrate ER) 30 MG TAB.ER.24H 1 TAB PO DAILY chf Lansoprazole (Prevacid) 15 MG TAB.RAP.DR 1 TAB PO DAILY GI (Reported) place on top of the tongue let dissolve, then swallow Nitroglycerin 0.4 MG TAB.SUBL 1 TAB SL AD CHEST PAIN PRN (Reported) 1st sign of attack; may repeat every 5 minutes until relief; if pain persists after 3 tablets in 15 minutes, prompt medical att Potassium Chloride (K-Tab ER) 10 MEQ TABLET.ER 1 TAB PO DAILY potassium supplement Compliance With Home Meds: GOOD Past History Travel History Traveled to [place] past 21 day No Medical History Neurological: NONE EENT: cataracts, glaucoma Cardiovascular: CHF, hypertension Respiratory: asthma, bronchitis Gastrointestinal: GERD Hepatic: NONE Renal: NONE Musculoskeletal: ARTHRITIS Psychiatric: NONE Endocrine: NONE Blood Disorders: NONE Cancer(s): NONE RN PALLIATIVE CARE/Reproductive: D&C History of MRSA: No History of VRE: No History of CDIFF: No Surgical History Surgical History: non-contributory Past Family/Social History Psychosocial History Where do you live? Home Primary Language: Greenlandic Smoking Status: Former Smoker ETOH Use: occasional use Illicit Drug Use: denies illicit drug use Functional Ability ADLs Independent: dressing, eating, toileting, bathing. Ambulation: independent IADLs Independent: shopping, housework, finances. Review of Systems Review of Systems Constitutional: Reports: see HPI. Cardiovascular: Reports: chest pain, edema, peripheral edema. Denies: orthopena, palpitations. Respiratory: Reports: short of breath. Denies: cough, hemoptysis, orthopnea, sputum production. GI: Reports: bloating. Denies: constipation, diarrhea, distention. Genitourinary: Reports: no symptoms. Musculoskeletal: Reports: no symptoms. Skin: Reports: no symptoms. Neurological/Psychological: Reports: no symptoms. Hematologic/Endocrine: Reports: no symptoms. All Other Systems: Reviewed and Negative Exam & Diagnostic Data Last 24 Hrs of Vital Signs/I&O Vital Signs Date Time Temp Pulse Resp B/P B/P Pulse O2 O2 Flow FiO2 Mean Ox Delivery Rate 01/17 1135 98 Room Air Room Air 01/17 1132 96.5 60 18 147/67 98 Room Air Intake & Output 01/17 1600 01/17 0800 01/17 0000 Intake Total Output Total 250 Balance -250 Output, Urine 250 Patient 113.398 kg Weight Weight Reported by Patient Measurement Method Physical Exam General Appearance Alert, Oriented X3, Cooperative Skin No Rashes, No Breakdown HEENT Atraumatic, PERRLA, EOMI Neck Supple, No JVD Cardiovascular Regular Rate, Normal S1, Normal S2 Lungs Bilateral crackles present, no wheezing or rhonchi Abdomen Normal Bowel Sounds, Soft, No Tenderness Extremities edema 1-2+ Vascular Normal Pulses Last 24 Hrs of Labs/Brandt: Laboratory Tests 01/17/18 1528: Troponin I Pending 01/17/18 1121: Anion Gap 7, Estimated GFR > 60, BUN/Creatinine Ratio 27.1 H, Glucose 103 H, Calcium 9.2, Total Bilirubin 0.1 L, AST 17, ALT 19, Alkaline Phosphatase 97, Troponin I < 0.01, Gbn-O-Gfoslxuwmlt Pept 136 H, Total Protein 7.8, Albumin 3.5 , Globulin 4.3 H, Albumin/Globulin Ratio 0.8 L, PT 12.6 H, INR 1.15, APTT 29, CBC w Diff NO MAN DIFF REQ, RBC 4.39, MCV 75.5 L, MCH 23.6 L, MCHC 31.3 L, RDW 18.8 H, MPV 7.5, Gran % 56.0, Lymphocytes % 34.7, Monocytes % 6.9, Eosinophils % 2.4, Basophils % 0, Absolute Granulocytes 4.3, Absolute Lymphocytes 2.6, Absolute Monocytes 0.5, Absolute Eosinophils 0.2, Absolute Basophils 0 Diagnostic Data EKG Results Regular, rate of 26, normal sinus rhythm, incomplete right bundle branch block, no acute ST-T wave changes, QTC of 522 CXR Results Chest x-ray showed cardiomegaly, prominence of the central pulmonary vasculature and perihilar regions consistent with congestive heart failure/fluid overload, no focal area of consolidation. Assessment/Plan Assessment: In summary, Ms Schaffer is a 82-year-old female with past medical history significant for asthma/bronchitis, arthritis, hypertension, anemia, heart failure with preserved ejection fraction came in today with chief complaint of chest pain, initially gastritis like, substernal in location, followed by a fall forward, causing worsening sore kind of chest pain, 7 out of 10, bilaterally across the chest with radiation to shoulder since 4 days prior to today's presentation. Vitals on exam temperature of 96.5, pulse of 60, RR 18, B/P 147/67, 98% on room air. Chest x-ray showed evidence of pulmonary vascular congestion. Last echo done in October 2017 showed no obvious small motion abnormalities with a EF of 55-60% and left ventricular wall thickness. Relevant labs no white count, H/H of 10.4/33.1 (recent hemoglobin of 9.9/32.6) MCV 75.5 platelet of 367. Sodium of 140, potassium of 3.9, BUN/creatinine 19/0.7, glucose of 103. Calcium of 0.1, liver function tests within normal limits, proBNP of 136 years Initial set of troponin negative less than 0.01. EKG showed normal sinus rhythm, regular, incomplete right bundle branch block, left anterior fascicular block, QTC of 522. Assessment. Her chest pain could be multifactorial, even though she had a fall and hurt her chest, this worsened her chest pain however her initial chest pain was existing even prior to the fall, there is definitely a component of costochondritis, however acute coronary syndrome needs to be ruled out, chest x-ray shows evidence of pulmonary venous congestion, she endorses the history of taking furosemide every day however she says that sometimes she alters the timings, could be secondary to less compliance to her furosemide dosage, we will diurese her with additional IV water pill and obtain repeat chest x-ray. Problem lisT #1 Heart failure with preserved ejection fraction. #2 Chest pain rule out acute coronary syndrome. #3 Possible costochondritis after recent fall and chest trauma. #4 prolonged QTC. pLAN * Admit the patient to cardiac telemetry floor continuous cardiac monitoring, serial EKG and troponin, one time a 40 mg IV Lasix given today, we'll repeat another dose of 40 mg IV Lasix tomorrow, continue to monitor intake and output, continue daily weights monitoring, muscular chest pain managed with pain management pathway. * Avoid any QT prolonging drugs at the QTC is 522. * 1 time of 325 mg aspirin given while at the emergency department. * Will refrain from repeating echo as we had one recent echo in October 2017. FC PP DVT px As Ranked By This Provider Problem List: 1. CHF exacerbation 2. Atypical chest pain 3. Dyspnea 4. Pulmonary edema Core Measures/Misc (02/17) Acute Coronary Syndrome ACS Diagnosis: No Congestive Heart Failure Congestive Heart Failure Diagnosis Yes Last Known EF % 60 No GUILHERME/ARB d/t General Pt Non-Compliance Cerebrovascular Accident CVA/TIA Diagnosis: No VTE (View Protocol) VTE Risk Factors No risk factors No Mechanical VTE Prophylaxis d/t Other No VTE Pharm Prophylaxis d/t Other Sepsis (View protocol) Sepsis Present: No If YES complete Sepsis Event Note If YES complete Sepsis Event Note Resident Review Statement Resident Statement: admitted by resident Kimberly GAMBOADavid 01/17/18 1558: Core Measures/Misc (02/17) Sepsis (View protocol) If YES complete Sepsis Event Note If YES complete Sepsis Event Note Attending MD Review Statement Attending Statement Attending MD Statement: examined this patient, discuss w/resident/PA/NC MANAGER, agreed w/resident/PA/NC MANAGER, reviewed EMR data (avail) Attending Assessment/Plan: 82F PMH hypertension, asthma, bronchitis, arthritis, anemia, HFpEF presenting with 2 days of bilateral chest pain, right shoulder pain, and burning epigastric pain. Symptoms are intermittent and progressive, described as burning, worse when lying flat, worse with motion. No inciting event or trauma. Denies lightheadedness, headache, sore throat, palpitations, diaphoresis, abdominal pain, diarrhea, dysuria. She has chronic dyspnea that is unchanged. Has noticed worsening bilateral lower extremity edema of late. Has crackles on lung exam, with CXR showing mild pulmonary vascular congestion. On Lasix 60mg PO daily at home. 1. Acute on chronic diastolic CHF 2. Chest pain at rest Plan - Admit to telemetry - Serial EKG and troponin - Lasix 40mg IV tonight and tomorrow morning and re-evaluate - Cardiology consult - No need for echocardiogram as it was done recently - Continue home medications - DVT PPx
[2018-01-17] MEDS ORDERED: NITROGLYCERIN0.4 M1 SL (14:56)
[2018-01-17 17:23] VITALS: BP 142/74
[2018-01-17 21:57] VITALS: BP 128/54
[2018-01-18 06:30] VITALS: BP 110/50
--- NOTE | 2018-01-18 07:00 | Event Note ---
Event Note Event Note: S:Overnight, was paged by nursing staff stating patient had chest pain, which abutted after 2x administrations of nitro SL. B: Mrs. Gibson is an 82F with gastritis, CHF, DM, HTN, asthma who presented to ED for 2-3 days of chest pain similar to this episode. Per patient, this has been normal for her over the past 2-3 days and usually resolves after two administrations of nitro. A: Vitally stable, no complaints at time of page as chest pain had resolved. R: Ordered stat EKG, which showed no change from previous ECG. No ST segment elevations. Nursing staff instructed to page me if any change in patient condition. Three sets of troponins negative earlier in day. Will update morning team regarding patient. Lemuel Vargas #[phone]
[2018-01-18 08:32] LABS: ABSOLUTE BASOPHIL COUNT 0 /CUMM (0.0-0.2); ABSOLUTE EOSINOPHIL COUNT 0.1 /CUMM (0.0-0.7); ABSOLUTE GRANULOCYTE CT 3.2 /CUMM (1.4-6.5); ABSOLUTE LYMPH COUNT 2.6 /CUMM (1.2-3.4); ABSOLUTE MONOCYTE COUNT 0.4 /CUMM (0.10-0.60); BASOPHIL % 0.5 % (0.0-2.0); GRANULOCYTE % 49.9 % (42.2-75.2); HEMATOCRIT 33.1 % (37-47); MEAN CORPUSCULAR HGB 23.6 PG (27.0-31.0); MEAN CORPUSCULAR HGB CONC 31.6 G/DL (33.0-37.0); MEAN CORPUSCULAR VOLUME 74.6 FL (81.0-99.0); MEAN PLATELET VOLUME 7.8 FL (7.4-10.4); PLATELET COUNT 322 /CUMM (130-400); RBC DISTRIBUTION WIDTH 18.8 % (11.5-14.5); RED BLOOD CELL CT 4.44 /CUMM (4.20-5.40); WHITE BLOOD CELL COUNT 6.4 /CUMM (4.8-10.8)
--- NOTE | 2018-01-18 08:42 | PN- Housestaff ---
See Addendum Subjective Follow-up For: CHF exacerbation Subjective: patient endorses that she has been drinking a lot of water and had recently had clam chowder which is very salty, along with water pill as directed. Patient states she is currently not experiencing difficulty in breathing, was lying in bed comfortably when examined this morning. Denies fever, night sweats, chills, chest pain, shortness of breath Review of Systems Constitutional: Reports: see HPI. Objective Last 24 Hrs of Vital Signs/I&O Vital Signs Date Time Temp Pulse Resp B/P B/P Pulse O2 O2 Flow FiO2 Mean Ox Delivery Rate 01/18 0630 98.5 68 18 110/50 94 08 0000 96 Nasal 2.0L Cannula 01/17 2157 98.2 74 20 128/54 91 Room Air 01/17 1723 97.7 96 18 142/74 95 Room Air 01/17 1603 98.7 63 20 124/60 96 Room Air 01/17 1135 98 Room Air Room Air 01/17 1132 96.5 60 18 147/67 98 Room Air Intake & Output 01/18 1600 01/18 0800 01/18 0000 Intake Total 0 400 Output Total 400 Balance -400 400 Intake, Oral 0 400 Output, Urine 400 Physical Exam General Appearance: Alert, Oriented X3, Cooperative Cardiovascular: Regular Rate, Normal S1, Normal S2 Lungs: Clear to Auscultation, Normal Air Movement Abdomen: Normal Bowel Sounds, Soft, No Tenderness Assessment/Plan Assessment: In summary, Ms Gibson is a 82-year-old female with past medical history significant for asthma/bronchitis, arthritis, hypertension, anemia, heart failure with preserved ejection fraction came in today with chief complaint of chest pain, initially gastritis like, substernal in location, followed by a fall forward, causing worsening sore kind of chest pain, 7 out of 10, bilaterally across the chest with radiation to shoulder since 4 days prior to presentation on 01/18/18 Assessment. Her chest pain could be multifactorial, even though she had a fall and hurt her chest, this worsened her chest pain however her initial chest pain was existing even prior to the fall, there is definitely a component of costochondritis, however acute coronary syndrome needs to be ruled out, chest x-ray shows evidence of pulmonary venous congestion, she endorses the history of taking furosemide every day however she says that sometimes she alters the timings, could be secondary to less compliance to her furosemide dosage, we will diurese her with additional IV water pill and obtain repeat chest x-ray. Problem lisT #1 Heart failure with preserved ejection fraction. #2 Chest pain rule out acute coronary syndrome. #3 Possible costochondritis after recent fall and chest trauma. #4 prolonged QTC. pLAN * Admit the patient to cardiac telemetry floor continuous cardiac monitoring, serial EKG and troponin, one time a 40 mg IV Lasix given today, we'll repeat another dose of 40 mg IV Lasix tomorrow, continue to monitor intake and output, continue daily weights monitoring, muscular chest pain managed with pain management pathway. * Avoid any QT prolonging drugs at the QTC is 522. * 1 time of 325 mg aspirin given while at the emergency department. * Will refrain from repeating echo as we had one recent echo in October 2017. Attempting to wean patient off of oxygen, as she does not require oxygen at home. SOB is most likely secondary to obesity and asthma, lungs are clear, patient has history of medical non-compliance. Did not continue furosemide as patient did not have signs of fluid overload. Anticipate discharge tomorrow. FC PP DVT px Problem List: 1. Dyspnea Pain Ratin Pain Location: n/a Pain Goal: Remain pain free Pain Plan: tylenol Tomorrow's Labs & Rationales: none
[2018-01-18 14:53] VITALS: BP 130/70
--- NOTE | 2018-01-18 15:23 | Cons- Cardiology ---
General Information and HPI Consulting Request Date of Consult: 01/18/18 Requested By: David Harris MD History of Present Illness: Kat is an 82 year old female with history of hypertension, CHF and arthritis who presented to the ER for evaluation of chest discomfort. Over the past couple months this patient has noted recurrent episodes of precordial chest pressure which at times are severe and radiate toward her neck. During one particularly severe episode she was nauseated and diaphoretic. At the patient's baseline she can walk slowly and clean her house without having discomfort but rather she noted the discomfort upon awakening in the morning. There is no definite relationship to eating although she has a history of GERD. The patient does have exertional shortness of breath, PND and orthopnea but this is not new. Otherwise she denies lightheadedness or palpitations. Many years ago she did have a cardiac catheterization which the patient reports being normal. She normally sees Rossy Silverman MD for her cardiac issues. Cardiac workup has included an echocardiogram showing a normal EF. Allergies/Medications Allergies: Coded Allergies: Penicillins (Severe, HIVES 03/06/17) Sulfa (Sulfonamide Antibiotics) (Severe, HIVES 03/06/17) Home Med List: Furosemide 40 MG TABLET 1.5 TAB PO DAILY PRN WATER (Reported) Ibuprofen 400 MG TABLET 1 TAB PO Q6 PRN hip pain Isosorbide Mononitrate (Isosorbide Mononitrate ER) 30 MG TAB.ER.24H 1 TAB PO DAILY chf Lansoprazole (Prevacid) 15 MG TAB.RAP.DR 1 TAB PO DAILY GI (Reported) place on top of the tongue let dissolve, then swallow Nitroglycerin 0.4 MG TAB.SUBL 1 TAB SL AD CHEST PAIN PRN (Reported) 1st sign of attack; may repeat every 5 minutes until relief; if pain persists after 3 tablets in 15 minutes, prompt medical att Potassium Chloride (K-Tab ER) 10 MEQ TABLET.ER 1 TAB PO DAILY potassium supplement Review of Systems Review of Systems: arthritis Past History Travel History Traveled to [place] past 21 day No Medical History Neurological: NONE EENT: cataracts, glaucoma Cardiovascular: CHF, hypertension Respiratory: asthma, bronchitis Gastrointestinal: GERD Hepatic: NONE Renal: NONE Musculoskeletal: ARTHRITIS Psychiatric: NONE Endocrine: NONE Blood Disorders: NONE Cancer(s): NONE ANALYTICAL LABORATORY TECHNICIAN/Reproductive: D&C Surgical History Surgical History: non-contributory Psychosocial History Where Do You Live? Home Primary Language: Pashto Smoking Status: Former Smoker (quit in 1991) ETOH Use: denies use (heavy use prior to 1991), occasional use Illicit Drug Use: denies illicit drug use Functional Ability ADLs Independent: dressing, eating, toileting, bathing. Ambulation: independent IADLs Independent: shopping, housework, finances. Exam & Diagnostic Data Vital Signs and I&O Vital Signs Date Time Temp Pulse Resp B/P B/P Pulse O2 O2 Flow FiO2 Mean Ox Delivery Rate 01/18 1453 97.7 66 18 130/70 94 Nasal 2.0L Cannula 01/18 0800 97 Nasal 2.0L Cannula 01/18 0630 98.5 68 18 110/50 94 01/18 0000 96 Nasal 2.0L Cannula 01/17 2157 98.2 74 20 128/54 91 Room Air 01/17 1723 97.7 96 18 142/74 95 Room Air 01/17 1603 98.7 63 20 124/60 96 Room Air Intake & Output 01/18 1600 01/18 0800 01/18 0000 01/17 1600 01/17 0800 01/17 0000 Intake Total 420 0 400 Output Total 775 400 250 Balance -355 -400 400 -250 Intake, IV 20 Intake, Oral 400 0 400 Output, Urine 775 400 250 Patient 250 lb Weight Weight Reported by Patient Measurement Method Physical Exam: General: WD/obese female in NAD; alert and oriented x 3 HEENT: NC/AT, PERRL, EOMI Neck: no JVD, no carotid bruit Heart: RRR w/o murmur Lungs: clear bilaterally Abdomen: soft, obese, NT, +ve bowel sound Extremities: no edema Diagnostic Data EKG Results sinus rhythm with RBBB and LPFB Assessment/Plan Assessment/Plan * This patient has symptoms that are suggestive of myocardial ischemia although there are some atypical features to her pain. She does have risk factors for myocardial ischemia. I would risk stratify her with a pharmacologic stress test. Continue aspirin and a statin. * There is no convincing evidence of decompensated CHF. I suspect that her exertional shortness of breath is related to a combination of obesity and asthma which appears to have resulted in enough RV strain to cause a RBBB and LPFB. No need to repeat an echocardiogram. Consult Acknowledgment - Thank you for your consult request.
[2018-01-18 22:16] VITALS: BP 128/78
[2018-01-19 06:00] VITALS: BP 122/80
--- NOTE | 2018-01-19 09:04 | PN- Housestaff ---
See Addendum Subjective Follow-up For: CHF exacerbation Subjective: Patient sitting up comfortably during exam. She denies any complaints at this time except for some muscular pain in her right shoulder. She reports less difficulty breathing but still has some. No events per nursing. No events on telemetry. Review of Systems Constitutional: Reports: see HPI. Objective Last 24 Hrs of Vital Signs/I&O Vital Signs Date Time Temp Pulse Resp B/P B/P Pulse O2 O2 Flow FiO2 Mean Ox Delivery Rate 01/19 1400 97.6 82 20 118/60 94 01/19 0800 94 Room Air 01/19 0600 98.2 71 20 122/80 92 01/19 0000 95 Nasal 1.0L Cannula 01/18 2216 97.3 83 18 128/78 95 Nasal Cannula Intake & Output 01/19 1600 01/19 0800 01/19 0000 Intake Total 450 250 Output Total 600 Balance -150 250 Intake, Oral 450 250 Output, Urine 600 Physical Exam General Appearance: Alert, Cooperative, No Acute Distress Skin Temp/Moisture Exam: Warm/Dry HEENT: Atraumatic, EOMI Cardiovascular: Regular Rate, Normal S1, Normal S2 Lungs: Clear to Auscultation Abdomen: Normal Bowel Sounds, Soft, No Tenderness Current Medications: Current Medications Sig/Dominguez Start time Last Medication Dose Route Stop Time Status Admin Acetaminophen 650 MG Q6P PRN 01/17 1715 AC 01/18 PO 1805 Acetaminophen 1,000 MG Q6P PRN 01/17 1715 AC IV Enoxaparin Sodium 40 MG DAILY 01/18 0900 AC 01/19 SC 0814 Nitroglycerin 0.4 MG .[AD] 01/17 1700 AC 01/18 SL 0030 Oxycodone/ 2 TAB Q6P PRN 01/17 1715 AC Acetaminophen PO Assessment/Plan Assessment: 82-year-old female with past medical history significant for asthma/bronchitis, arthritis, hypertension, anemia, heart failure with preserved ejection fraction came in today with chief complaint of chest pain, initially gastritis like, substernal in location, followed by a fall forward, causing worsening sore kind of chest pain, 7 out of 10, bilaterally across the chest with radiation to shoulder since 4 days prior to presentation on 01/18/18. She appears to be improving. No longer complains of chest pain at rest. The muscular pain in the right shoulder seems to go away with position. Her difficulty breathing could be due to obesity and hx of asthma compounded with diastolic heart failure. Plan - Admit to telemetry - Trops negative x 3 - Continue Lasix - Cardiology recommends exercise stress echo, most likely to be done outpt - No need for echocardiogram as it was done recently - Continue home medications - DVT PPx Problem List: 1. CHF exacerbation Pain Ratin Pain Location: NA Pain Goal: Remain pain free Pain Plan: Per pathway Tomorrow's Labs & Rationales: No labs for tmrw
[2018-01-19 14:00] VITALS: BP 118/60
--- NOTE | 2018-01-19 15:52 | PN- Cardiology ---
Subjective Subjective: * Patient had transient chest discomfort yesterday. She now feels well. Objective Vital Signs and I&Os Vital Signs Date Time Temp Pulse Resp B/P B/P Pulse O2 O2 Flow FiO2 Mean Ox Delivery Rate 01/19 1400 97.6 82 20 118/60 94 01/19 0800 94 Room Air 01/19 0600 98.2 71 20 122/80 92 01/19 0000 95 Nasal 1.0L Cannula 01/18 2216 97.3 83 18 128/78 95 Nasal Cannula Intake & Output 01/19 1600 01/19 0800 01/19 0000 01/18 1600 01/18 0801/18 0000 Intake Total 450 250 420 0 400 Output Total 600 775 400 Balance -150 250 -355 -400 400 Intake, IV 20 Intake, Oral 450 250 400 0 400 Output, Urine 600 775 400 Physical Exam: General: WD/obese female in NAD; alert and oriented x 3 HEENT: NC/AT, PERRL, EOMI Neck: no JVD, no carotid bruit Heart: RRR w/o murmur Lungs: clear bilaterally Abdomen: soft, obese, NT, +ve bowel sound Extremities: no edema Assessment/Plan Assessment/Plan * This patient has symptoms that are suggestive of myocardial ischemia although there are some atypical features to her pain. She does have risk factors for myocardial ischemia. I would risk stratify her with a pharmacologic stress test. Continue aspirin and a statin. * There is no convincing evidence of decompensated CHF. I suspect that her exertional shortness of breath is related to a combination of obesity and asthma which appears to have resulted in enough RV strain to cause a RBBB and LPFB. No need to repeat an echocardiogram. Continue telemetry? Yes
[2018-01-19 22:23] VITALS: BP 120/68
--- NOTE | 2018-01-20 07:06 | PN- Housestaff ---
Ti Mart 01/20/18 0706: Subjective Follow-up For: Chest pain Complaints: no complaints Tele-Events Since Last Visit: Patient did not have any significant telemetry events. Except for a couple of PVCs and heart rate ranging between 80-100 Subjective: Patient was examined while she was sitting in the chair. She did not appear very happy but said that she was doing fine except for the. Review of Systems Constitutional: Denies: chills, diaphoresis, fever, malaise, weakness, unexplained weight loss. Cardiovascular: Reports: chest pain. Denies: edema, orthopena, palpitations, peripheral edema, syncope. Respiratory: Denies: cough, hemoptysis, orthopnea, short of breath, sputum production. Gastrointestinal: Denies: abdominal pain, constipation, diarrhea, vomiting. Objective Last 24 Hrs of Vital Signs/I&O Vital Signs Date Time Temp Pulse Resp B/P B/P Pulse O2 O2 Flow FiO2 Mean Ox Delivery Rate 01/20 1505 98.1 75 20 126/78 93 Room Air 01/19 2223 98.1 79 20 120/68 94 Room Air Intake & Output 01/20 1600 01/20 0800 01/20 0000 Intake Total 600 300 300 Output Total 800 Balance -200 300 300 Intake, Oral 600 300 300 Number 1 Bowel Movements Output, Urine 800 Physical Exam General Appearance: Alert, Oriented X3, Cooperative, No Acute Distress Cardiovascular: Regular Rate, No Murmurs Lungs: dcereased breah sounds owing to the chest wall thickness Abdomen: Soft Neurological: decreased stregth in RUE Current Medications: Current Medications Sig/Dominguez Start time Last Medication Dose Route Stop Time Status Admin Acetaminophen 650 MG Q6P PRN 01/17 171 AC 01/20 PO 0644 Acetaminophen 1,000 MG Q6P PRN 01/17 1715 AC IV Aspirin 81 MG DAILY 01/20 09 AC 01/20 PO 1020 Enoxaparin Sodium 40 MG DAILY 01/18 09 AC 01/20 SC 0828 Nitroglycerin 0.4 MG .[AD] 01/17 1700 AC 01/18 SL 0030 Oxycodone/ 2 TAB Q6P PRN 01/17 1715 AC Acetaminophen PO Assessment/Plan Assessment: 82-year-old female with past medical history significant for asthma/bronchitis, arthritis, hypertension, anemia, heart failure with preserved ejection fraction came in today with chief complaint of chest pain, initially gastritis like, substernal in location, followed by a fall forward, causing worsening sore kind of chest pain, 7 out of 10, bilaterally across the chest with radiation to shoulder since 4 days prior to presentation on 01/18/18. Her chest pain has improved. Although there is weakness in the right upper extremity. Assessment plan #1 myocardial ischemia #2- CHF - she has atypical chest pain Scheduled for pharmacological stress test tomorrow Patient is n.p.o. midnight Continue telemetry Current medications including Furosemide Aspirin not given due to patient complaining of some "Bleed" probably GI Statin not tolerated by Ptaient as it causes Nausea Problem List: 1. Atypical chest pain Pain Ratin Pain Location: Chest Pain Goal: Remain pain free Pain Plan: Tylenol Tomorrow's Labs & Rationales: None David Harris MD 01/20/18 1101: Attending MD Review Statement Attending Statement Attending MD Statement: examined this patient, discuss w/resident/PA/BAKERY DELIVERER, agreed w/resident/PA/BAKERY DELIVERER, reviewed EMR data (avail) Attending Assessment/Plan: 82F PMH hypertension, asthma, bronchitis, arthritis, anemia, HFpEF presenting with 2 days of bilateral chest pain, right shoulder pain, and burning epigastric pain. Symptoms are intermittent and progressive, described as burning, worse when lying flat, worse with motion. No inciting event or trauma. Denies lightheadedness, headache, sore throat, palpitations, diaphoresis, abdominal pain, diarrhea, dysuria. She has chronic dyspnea that is unchanged. Has noticed worsening bilateral lower extremity edema of late. Has crackles on lung exam, with CXR showing mild pulmonary vascular congestion. On Lasix 60mg PO daily at home. 1. Acute on chronic diastolic CHF 2. Chest pain at rest Plan - Continue on telemetry - Continue Lasix - Cardiology consult - Continue home medications - Stress test tomorrow
--- NOTE | 2018-01-20 09:42 | PN- Student ---
Subjective Subjective: Pt reports improvement today. Chest pain/discomfort has completely dissipated and her only complaints are R shoulder/arm achy pain as well as achy R flank plain, both of which she thinks are muscular pains in nature. She is pleased about the reduction in swelling in her R arm and in both legs. Pt states that normally she watches her salt intake but has slipped up recently. I asked her why she is not on aspirin and a statin. She says that she infrequently takes aspirin at home but once had a "bleeding problem" which she thinks was due to aspirin (she couldn't be more specific w details). As for statin she thinks that she was on one once but it made her nauseated. She is agreeable to be put on aspirin but not a statin. Pt denies fever, chills, chest pain, dyspnea, abdominal pain, diaphoresis, and fatigue. 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) finger amputated Results Results: Laboratory Tests 01/18/18 0619: Anion Gap 6, Estimated GFR > 60, BUN/Creatinine Ratio 22.9, Magnesium 2.0, CBC w Diff NO MAN DIFF REQ, RBC 4.44, MCV 74.6 L, MCH 23.6 L, MCHC 31.6 L, RDW 18.8 H, MPV 7.8, Gran % 49.9, Lymphocytes % 40.9, Monocytes % 6.7, Eosinophils % 2.0 , Basophils % 0.5, Absolute Granulocytes 3.2, Absolute Lymphocytes 2.6, Absolute Monocytes 0.4, Absolute Eosinophils 0.1, Absolute Basophils 0 01/17/18 2141: Troponin I < 0.01 01/17/18 1528: Troponin I < 0.01 01/17/18 1121: Anion Gap 7, Estimated GFR > 60, BUN/Creatinine Ratio 27.1 H, Glucose 103 H, Calcium 9.2, Total Bilirubin 0.1 L, AST 17, ALT 19, Alkaline Phosphatase 97, Troponin I < 0.01, Bfp-L-Hqsfratfosh Pept 136 H, Total Protein 7.8, Albumin 3.5 , Globulin 4.3 H, Albumin/Globulin Ratio 0.8 L, PT 12.6 H, INR 1.15, APTT 29, CBC w Diff NO MAN DIFF REQ, RBC 4.39, MCV 75.5 L, MCH 23.6 L, MCHC 31.3 L, RDW 18.8 H, MPV 7.5, Gran % 56.0, Lymphocytes % 34.7, Monocytes % 6.9, Eosinophils % 2.4, Basophils % 0, Absolute Granulocytes 4.3, Absolute Lymphocytes 2.6, Absolute Monocytes 0.5, Absolute Eosinophils 0.2, Absolute Basophils 0 Assessment/Plan Assessment: Pt is an 82 yr F w hx of ashtma, bronchitis, arthritis, HTN, anemia, amd HFpEF that had presented to the ED with CC of chest pain. As of today the chest pain has completely disappeared, and now her only complaints are achy pain in the R shoulder/arm and R flank. Her current problem list is: 1. Chest pain r/o ACs 2. HFpEF 3. Achy pain of RUE and R flank Plan: - Pharmacologic stress test to stratify ACS risk - Start aspirin but not statin (pt refuses statin) - Consult nutrionist - Consult PT eval - Cont diuretics - Syptomatic relief for achy pain
[2018-01-20 15:05] VITALS: BP 126/78
[2018-01-20 22:59] VITALS: BP 116/68
--- NOTE | 2018-01-21 05:28 | Patient Discharge Instructions ---
Discharge Instructions General Discharge Information You were seen/treated for: Myocardial infarction leading to CHF. Treated symptomatically and did nuclear stress test which was positive for ischemia. You had these procedures: Nuclear stress test- 2 reversible blocks Watch for these problems: chest pain, Shortness of breath, Racing of heart, Sweating. Special Instructions: We transferred you to [facility] under the care of Dr.Joyce Dean Silverman, for possible cardiac catheterization. Diet Recommended Diet: Heart Healthy Acute Coronary Syndrome Inclusion Criteria At DC or during hospital stay patient has or had the following: ACS DIAGNOSIS Yes Discharge Core Measures Meds if any: Prescribed or Continued at Discharge Aspirin No Statin No Meds if any: NOT Prescribed or Continued at Discharge No Aspirin d/t Treatment Not Tolerated No Statin d/t nausea Congestive Heart Failure Inclusion Criteria At DC or during hospital stay patient has or had the following: CHF DIAGNOSIS Yes Discharge Core Measures Meds if any: Prescribed or Continued at Discharge Meds if any: NOT Prescribed or Continued at Discharge Cerebrovascular accident Inclusion Criteria At DC or during hospital stay patient has or had the following: CVA/TIA Diagnosis No Discharge Core Measures Meds if any: Prescribed or Continued at Discharge Meds if any: NOT Prescribed or Continued at Discharge Venous thromboembolism Inclusion Criteria VTE Diagnosis No VTE Type NONE VTE Confirmed by (Test) NONE Discharge Core Measures - Per Current guidelines, there needs to be overlap - treatment for the first 5 days of Warfarin therapy. - If discharged on Warfarin prior to 5 days of - overlap therapy, the patient will need to be - assessed for post discharge needs including - *Post discharge parental anticoagulation - *Warfarin and/or parental anticoagulation education - *Follow up date to check INR post discharge At least 5 days overlap therapy as Inpatient No Meds if any: Prescribed or Continued at Discharge Note: Overlap Therapy is Warfarin and Anticoagulant Meds if any: NOT Prescribed or Continued at Discharge
--- NOTE | 2018-01-21 07:11 | PN- Housestaff ---
Ti Mart 01/21/18 0711: Subjective Follow-up For: Atypical chest pain Complaints: no complaints Tele-Events Since Last Visit: Patient did not have any significant telemetry findings except for a couple of PVCs heart rates ranging between 80- 200 Subjective: Patient was examined sitting the chair. She was mentally prepared for her stress test but complained of pain in her right upper extremity and weakness. She said that similar complaint has existed previously and will resolve on its own or on taking pain medications. She did not seem too bothered about the right upper extremity pain and weakness and said it was due to her arthritis. Review of Systems Constitutional: Denies: chills, diaphoresis, fever, malaise, weakness, unexplained weight loss. Cardiovascular: Denies: chest pain, edema, orthopena, palpitations, peripheral edema, syncope. Respiratory: Denies: cough, hemoptysis, orthopnea, short of breath, sputum production, stridor, wheezing. Gastrointestinal: Denies: abdominal pain, constipation, diarrhea, vomiting. Genitourinary: Denies: dysuria, frequency, hematuria, nocturia, pain. Objective Last 24 Hrs of Vital Signs/I&O Vital Signs Date Time Temp Pulse Resp B/P B/P Pulse O2 O2 Flow FiO2 Mean Ox Delivery Rate 01/21 1441 98.1 74 18 132/62 93 01/21 0800 Room Air 01/21 0735 98.4 73 18 128/70 90 Room Air 01/20 2259 98.1 76 18 116/68 93 Nasal Cannula Intake & Output 01/21 1600 01/21 0800 01/21 0000 Intake Total 292 300 400 Output Total 500 Balance -208 300 400 Intake, IV 10 Intake, Oral 282 300 400 Output, Urine 500 Physical Exam General Appearance: Alert, Oriented X3, Cooperative, No Acute Distress Cardiovascular: Normal S1, Normal S2 Lungs: Normal Air Movement Abdomen: Soft, No Tenderness Neurological: Normal Speech, decreased strenth in right upper extremity , possbly due to arthritis Current Medications: Current Medications Sig/Dominguez Start time Last Medication Dose Route Stop Time Status Admin Acetaminophen 650 MG Q6P PRN 01/17 1715 AC 01/21 PO 0805 Acetaminophen 1,000 MG Q6P PRN 01/17 1715 AC IV Aspirin 81 MG DAILY 01/20 0900 AC 01/21 PO 0802 Calcium Carbonate 0 .STK-MED ONE 01/20 2339 DC PO Calcium Carbonate 500 MG ONCE ONE 01/20 2315 DC 01/20 PO 01/20 2316 2338 Dipyridamole 60 MG ONE ONE 01/21 1100 DC Dextrose/Water 28 ML IV 01/21 1101 Enoxaparin Sodium 40 MG DAILY 01/18 0900 AC 01/21 SC 0802 Nitroglycerin 0.4 MG .[AD] 01/17 1700 AC 01/18 SL 0030 Oxycodone/ 2 TAB Q6P PRN 01/17 1715 AC Acetaminophen PO Patient Medication 1 ED ONE ONE 01/21 1400 DC Teaching ED 01/21 1401 Assessment/Plan Assessment: 82-year-old female with past medical history significant for asthma/bronchitis, arthritis, hypertension, anemia, heart failure with preserved ejection fraction came in today with chief complaint of chest pain, initially gastritis like, substernal in location, followed by a fall forward, causing worsening sore kind of chest pain, 7 out of 10, bilaterally across the chest with radiation to shoulder since 4 days prior to presentation on 01/18/18. Her chest pain has improved. Although there is weakness in the right upper extremity. Assessment plan #1 myocardial ischemia #2- CHF - she has atypical chest pain Scheduled for pharmacological stress test - result showed 2 reversible blocks , discussed with DR. Vitale. Patient is n.p.o. midnight for possible cathetrisation tomorrow- to be discussed with DR Aguilar tomorrow morning. Continue telemetry Aspirin - patient complaining of some "Bleed" probably GI Statin not tolerated by Ptaient as it causes Nausea Problem List: 1. ACS (acute coronary syndrome) 2. Atypical chest pain Pain Ratin Pain Location: chest Pain Goal: Remain pain free Pain Plan: tyelenol Tomorrow's Labs & Rationales: cbc, bep, pt inr, mg David Harris MD 01/21/18 1143: Attending MD Review Statement Attending Statement Attending MD Statement: examined this patient, discuss w/resident/PA/SEMICONDUCTOR MANUFACTURING TECHNICIAN, agreed w/resident/PA/SEMICONDUCTOR MANUFACTURING TECHNICIAN, reviewed EMR data (avail) Attending Assessment/Plan: 82F PMH hypertension, asthma, bronchitis, arthritis, anemia, HFpEF presenting with 2 days of bilateral chest pain, right shoulder pain, and burning epigastric pain. Symptoms are intermittent and progressive, described as burning, worse when lying flat, worse with motion. No inciting event or trauma. Denies lightheadedness, headache, sore throat, palpitations, diaphoresis, abdominal pain, diarrhea, dysuria. She has chronic dyspnea that is unchanged. Has noticed worsening bilateral lower extremity edema of late. Has crackles on lung exam, with CXR showing mild pulmonary vascular congestion. On Lasix 60mg PO daily at home. 1. Acute on chronic diastolic CHF 2. Chest pain at rest Plan - Continue on telemetry - Continue Lasix - Cardiology consult - Continue home medications - Stress test tomorrow
[2018-01-21 07:35] VITALS: BP 128/70
[2018-01-21 14:41] VITALS: BP 132/62
--- NOTE | 2018-01-21 16:08 | NUCLEAR MEDICINE REPORT ---
PERSANTINE STRESS AND RESTING SPECT MYOCARDIAL PERFUSION IMAGING STUDY WITH GATED SPECT IMAGES: CLINICAL INDICATION: Chest pain. PROCEDURE: Regional myocardial perfusion was assessed using a 1 day protocol. Stress images were obtained on a 20 06/22/2017 following the intravenous administration of 27.9 mCi Tc 99m Myoview. Stress consisted of 60 mg Persantine given intravenously. Following the sestamibi injection, no aminophylline was given intravenously. Rest images were obtained 01/21/2018 following the intravenous administration of 48.7 mCi Technetium 99m Myoview. Single photon emission tomographic (SPECT) images were obtained. SPECT images were acquired in a 64 x 64 matrix of 64 projections over 180 degrees. These were reconstructed into standard short axis, horizontal and vertical long axis cardiac projections. FINDINGS: The post stress images show left ventricular chamber to be normal in size. There is a small focus of markedly diminished and almost absent activity involving the apex and adjacent apical inferior wall impressions of the adjacent apical inferolateral wall. There is an additional smaller discrete focus of markedly diminished and almost absent activity in the apical septal wall. Activity in the other covarrubias appears normal. The rest images show significant improvement in both of the previously described abnormalities, with a smaller persistent abnormality at the apex an almost complete resolution of the apical septal defect noted on the rest images. The other covarrubias are unchanged from the post stress images and appear normal. The images were obtained using a gated SPECT technique, which permits visualization of wall motion and calculation of the left ventricular ejection fraction. Left ventricular chamber is normal in size. No left ventricular wall motion abnormalities are present. The calculated left ventricular ejection fraction is 72% on the stress study. No previous studies available for comparison. IMPRESSION: Abnormal study. Two discrete reversible perfusion abnormalities are noted, as described above. There is a partially reversible abnormality at the apex extending into the adjacent apical inferior wall and a second almost completely reversible abnormality in the apical septal wall. Left ventricular wall motion and ejection fraction are normal.
[2018-01-21 21:32] VITALS: BP 126/68
--- NOTE | 2018-01-21 21:45 | PN- Cardiology ---
Subjective Subjective: * No complaints. * sinus rhythm * stress test is positive for ischemia Objective Vital Signs and I&Os Vital Signs Date Time Temp Pulse Resp B/P B/P Pulse O2 O2 Flow FiO2 Mean Ox Delivery Rate 01/21 2132 98.4 71 18 126/68 93 Room Air 01/21 1441 98.1 74 18 132/62 93 01/21 0800 Room Air 01/21 0735 98.4 73 18 128/70 90 Room Air 01/20 2259 98.1 76 18 116/68 93 Nasal Cannula Intake & Output 01/21 1600 01/21 0800 01/21 0000 01/20 1600 01/20 0800 01/20 0000 Intake Total 292 300 400 600 300 300 Output Total 500 800 Balance -208 300 400 -200 300 300 Intake, IV 10 Intake, Oral 282 300 400 600 300 300 Number 1 Bowel Movements Output, Urine 500 800 Physical Exam: General: WD/obese female in NAD; alert and oriented x 3 HEENT: NC/AT, PERRL, EOMI Neck: no JVD, no carotid bruit Heart: RRR w/o murmur Lungs: clear bilaterally Abdomen: soft, obese, NT, +ve bowel sound Extremities: no edema Assessment/Plan Assessment/Plan * This patient has symptoms that are suggestive of myocardial ischemia along with a positive stress test. We will arrange for transfer to the [facility] tomorrow under Dr. Rossy Silverman for anticipated cardiac catheterization. Continue aspirin and a statin. Continue telemetry? Yes
[2018-01-22 06:42] VITALS: BP 140/68
[2018-01-22] MEDS ORDERED: CALCIUM CARBON200 MG PO (06:45)
[2018-01-22] MEDS ORDERED: ASPIRIN81 M4 PO (06:45)
--- NOTE | 2018-01-22 07:15 | PN- Housestaff ---
Ti Mart 01/22/18 0714: Subjective Follow-up For: Atypical chest pain Complaints: no complaints Tele-Events Since Last Visit: Patient did not have any significant telemetry findings except for a couple of PVCs heart rates ranging between 80- 100 Subjective: Patient was examined sitting the chair and was discussed about the procedure she was going to have as per cardiologyPCI. And about the transfer to the hospital consent for transfer of care was acquired and use of pravastatin was discussed with the patient which she agreed. Review of Systems Constitutional: Denies: chills, diaphoresis, fever, malaise, weakness, unexplained weight loss. Cardiovascular: Denies: chest pain, edema, orthopena, palpitations, peripheral edema, syncope. Respiratory: Denies: cough, hemoptysis, orthopnea, short of breath, sputum production, stridor, wheezing. Gastrointestinal: Denies: bloating, constipation, diarrhea, distention, bowel incontinence, melena , nausea, bloody stool, changes in stool, vomiting, steatorrhea. Genitourinary: Reports: no symptoms. Objective Last 24 Hrs of Vital Signs/I&O Vital Signs Date Time Temp Pulse Resp B/P B/P Pulse O2 O2 Flow FiO2 Mean Ox Delivery Rate 01/22 1127 75 140/68 01/22 0800 Room Air 01/22 0642 98.3 75 18 140/68 93 Room Air 01/21 2132 98.4 71 18 126/68 93 Room Air Intake & Output 01/22 1600 01/22 0800 01/22 0000 Intake Total 422 Output Total 700 300 Balance -700 122 Intake, Oral 422 Number 3 Bowel Movements Output, Urine 700 300 Patient 200 lb Weight Weight Bed scale Measurement Method Physical Exam General Appearance: Alert, Oriented X3, Cooperative, No Acute Distress Cardiovascular: Regular Rate, No Murmurs Lungs: Clear to Auscultation, Normal Air Movement Abdomen: Normal Bowel Sounds, Soft, No Tenderness, No Hepatospenomegaly, No Masses Neurological: Normal Speech, Strength at 5/5 X4 Ext, Normal Tone, Sensation Intact Current Medications: Current Medications Sig/Dominguez Start time Last Medication Dose Route Stop Time Status Admin Acetaminophen 650 MG Q6P PRN 01/17 1715 DCD 01/22 PO 1128 Acetaminophen 1,000 MG Q6P PRN 01/17 1715 DCD IV Aspirin 81 MG DAILY 01/20 0900 DCD 01/21 PO 0802 Calcium Carbonate 500 MG Q6P PRN 01/21 2030 DCD 01/22 PO 1131 Enoxaparin Sodium 40 MG DAILY 01/18 0900 DCD 01/21 SC 0802 Isosorbide 30 MG DAILY 01/22 0904 DCD 01/22 Mononitrate PO 1127 Nitroglycerin 0.5 GM Q6 PRN 01/22 0915 CAN TOP Nitroglycerin 0.4 MG .[AD] 01/17 1700 DCD 01/18 SL 0030 Omeprazole 40 MG DAILY AC 01/22 0925 DCD 01/22 PO 1128 Oxycodone/ 2 TAB Q6P PRN 01/17 1715 DCD Acetaminophen PO Pravastatin Sodium 20 MG 1700 01/22 1700 DCD PO Last 24 Hrs of Lab/Brandt Results Last 24 Hrs of Labs/Mics: Laboratory Tests 01/22/18 0616: Anion Gap 7, Estimated GFR > 60, BUN/Creatinine Ratio 21.3, Magnesium 1.8, PT 13.1 H, INR 1.20 H, CBC w Diff NO MAN DIFF REQ, RBC 4.59, MCV 75.2 L, MCH 23.3 L, MCHC 31.0 L, RDW 19.9 H, MPV 8.1, Gran % 49.2, Lymphocytes % 43.7, Monocytes % 4.1, Eosinophils % 2.4, Basophils % 0.6, Absolute Granulocytes 3.0, Absolute Lymphocytes 2.7, Absolute Monocytes 0.3, Absolute Eosinophils 0.1, Absolute Basophils 0 Assessment/Plan Assessment: 82-year-old female with past medical history significant for asthma/bronchitis, arthritis, hypertension, anemia, heart failure with preserved ejection fraction came in today with chief complaint of chest pain, initially gastritis like, substernal in location, followed by a fall forward, causing worsening sore kind of chest pain, 7 out of 10, bilaterally across the chest with radiation to shoulder since 4 days prior to presentation on 01/18/18. Her chest pain has improved. Although there is weakness in the right upper extremity. Assessment plan #1 myocardial ischemia #2- CHF - she has atypical chest pain Scheduled for pharmacological stress test - result showed 2 reversible blocks , discussed with DR. Vitale. Patient is n.p.o. she will be transferred to [facility] for percutaneous intervention as per Dr. Aguilar Continue aspirin and statin Problem List: 1. Atypical chest pain Pain Ratin Pain Location: None Pain Goal: Remain pain free Pain Plan: None Tomorrow's Labs & Rationales: None David Harris MD 01/22/18 1154: Attending MD Review Statement Attending Statement Attending MD Statement: examined this patient, discuss w/resident/PA/PRIMARY CLINICIAN, agreed w/resident/PA/PRIMARY CLINICIAN, reviewed EMR data (avail) Attending Assessment/Plan: 82F PMH hypertension, asthma, bronchitis, arthritis, anemia, HFpEF presenting with 2 days of bilateral chest pain, right shoulder pain, and burning epigastric pain. Symptoms are intermittent and progressive, described as burning, worse when lying flat, worse with motion. No inciting event or trauma. Denies lightheadedness, headache, sore throat, palpitations, diaphoresis, abdominal pain, diarrhea, dysuria. She has chronic dyspnea that is unchanged. Has noticed worsening bilateral lower extremity edema of late. Has crackles on lung exam, with CXR showing mild pulmonary vascular congestion. On Lasix 60mg PO daily at home. Nuclear stress teston 01/21 was positive for reversible ischemia. 1. Acute on chronic diastolic CHF 2. Chest pain at rest Plan - Will likely be transferred for cardiac catheterization today - Continue Lasix - Cardiology consult - Continue home medications
--- NOTE | 2018-01-22 07:41 | Discharge Summary ---
Visit Information Visit Dates Admission Date: 01/17/18 Discharge Date: 01/22/2018 Hospital Course Course Attending Physician: David Harris MD Primary Care Physician: Esa Sweeney MD Hospital Course: Patient is an 82-year-old female presented with chief complaints of chest pain since 1 week. We admitted the patient to telemetry floor. Serial troponins were negative. 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 We obtained cardiology consult who advised for pharmacological stress test. Stress test showed evidence of two discrete reversible perfusion abnormalities.There was a partially reversible abnormality at the apex extending into the adjacent apical inferior wall and a second almost completely reversible abnormality in the apical septal wall. Left ventricular wall motion and ejection fraction were normal. Discussed with the patient, about management plan and she was willing for follow-up coronary angiogram with possible stent/CABG. We transferred the patient to [facility] under the care of Dr Rossy Silverman. We continued patient on aspirin, statins, nitroglycerin and home dose of lasix as needed. Allergies: Coded Allergies: Penicillins (Severe, HIVES 03/06/17) Sulfa (Sulfonamide Antibiotics) (Severe, HIVES 03/06/17) Disposition Summary Disposition Principal Diagnosis: Non-ST elevation KS, atypical chest pain, negative troponins, positive stress test Additional Diagnosis: Asthmatic bronchitis Arthritis Hypertension Anemia HFpEF Discharge Disposition: other general hospital Discharge Instructions General Discharge Information Code Status: Full Code Patient's Diet: N.p.o. for possible cardiac catheterization Patient's Activity: As tolerated, avoid exertion Follow-Up Instructions/Appts: We transferred the patient to [facility] for possible cardiac catheterization. We advised to follow-up client relationship consultant recommendation. Medications at Discharge Discharge Medications: Continue taking these medications: Isosorbide Mononitrate (Isosorbide Mononitrate ER) 30 MG TAB.ER.24H 1 Tablet ORAL DAILY Qty = 30 Comments: Last Taken: 10/09/17 Time: 0800 Furosemide (Furosemide) 40 MG TABLET 1.5 Tablet ORAL DAILY as needed for WATER Lansoprazole (Prevacid) 15 MG TAB.RAP.DR 1 Tablet ORAL DAILY Instructions: place on top of the tongue let dissolve, then swallow Nitroglycerin (Nitroglycerin) 0.4 MG TAB.SUBL 1 Tablet SUBLINGUAL As Directed Qty = 25 Instructions: 1st sign of attack; may repeat every 5 minutes until relief; if pain persists after 3 tablets in 15 minutes, prompt medical att Start taking the following new medications: Aspirin (Aspirin*) 81 MG TAB.CHEW 81 Milligram ORAL DAILY Qty = 10 No Refills Pravastatin Sodium (Pravachol) 20 MG TABLET 1 Tablet ORAL DAILY Qty = 30 No Refills Copies To: Patel GAMBOA,Esa Ernandez; Jeff GAMBOA PHD,Jori An Attending MD Review Statement Documenting Attending: Kimberly GAMBOA,David Harris MD,David
[2018-01-22 08:16] LABS: ABSOLUTE BASOPHIL COUNT 0 /CUMM (0.0-0.2); ABSOLUTE EOSINOPHIL COUNT 0.1 /CUMM (0.0-0.7); ABSOLUTE LYMPH COUNT 2.7 /CUMM (1.2-3.4); ABSOLUTE MONOCYTE COUNT 0.3 /CUMM (0.10-0.60); BASOPHIL % 0.6 % (0.0-2.0); EOSINOPHIL % 2.4 % (0-5); GRANULOCYTE % 49.2 % (42.2-75.2); HEMATOCRIT 34.5 % (37-47); MEAN CORPUSCULAR HGB 23.3 PG (27.0-31.0); MEAN CORPUSCULAR VOLUME 75.2 FL (81.0-99.0); MEAN PLATELET VOLUME 8.1 FL (7.4-10.4); PLATELET COUNT 340 /CUMM (130-400); RBC DISTRIBUTION WIDTH 19.9 % (11.5-14.5); RED BLOOD CELL CT 4.59 /CUMM (4.20-5.40); WHITE BLOOD CELL COUNT 6.1 /CUMM (4.8-10.8)
[2018-01-22 08:27] LABS: PT 13.1 SEC (9.4-12.5)
[2018-01-22] MEDS ORDERED: PRAVACHOL20 M2 PO (09:07)
--- NOTE | 2018-01-22 09:57 | IV DIPYRIDAMOLE NUCLEAR STRESS ---
Clinical Diagnosis: R/O Ischemia Litigator: Constance Wilde IV DIPYRIDAMOLE INFUSED: 60 mg IV AMINOPHYLLINE INFUSED: 0 mg PATIENT WEIGHT: 250 lbs INTERPRETATION: The patient's baseline EKG showed right bundle branch block and sinus rhythm at 66 BPM. Baseline B/P 124/62. The patient received 60 mg of dipyridamole infused intravenously over a 4 minute period. TC99M Myoview was injected after dipyridamole infusion. The patient tolerated the infusion well. There were no EKG changes seen following pharmacologic infusion. Arrhythmias: None IMPRESSION: The test was supervised by the interpreting [employer] Sweater Operator, who was in attendance during the entire test. No EKG evidence of stress induced myocardial ischemia. See separately dictated Nuclear Report.
[2018-01-22 11:27] VITALS: BP 140/68
== END 2018-01-22 11:42 | disposition short-term general hospital (02) | DRG 280 ==
LOC: ERH 08:54 → 1NO 12:12 → ERHI 12:12 → EDBEDREQ 13:09 → ENRESERV 14:01 → ENTRNSPT 16:25 → EDTRNSPTSTS 16:47 → EDTRNSPT 16:47 → 1NO 16:53 → CMPTRNSPT 17:02 → 1NO 01-18 11:27 → ENPENDDIS 01-22 10:36 → 1NO 01-22 11:42
PROVIDERS: Emergency Medicine; Internal Medicine; Student in an Organized Health Care Education/Training Program
DX: I21.4 Non-ST elevation (NSTEMI) myocardial infarction (principal); I11.0 Hypertensive heart disease with heart failure; I50.33 Acute on chronic diastolic (congestive) heart failure; I45.2 Bifascicular block; Z68.42 Body mass index [BMI] 45.0-49.9, adult; E11.9 Type 2 diabetes mellitus without complications; D64.9 Anemia, unspecified; I49.3 Ventricular premature depolarization; K21.9 Gastro-esophageal reflux disease without esophagitis; H40.9 Unspecified glaucoma; K29.70 Gastritis, unspecified, without bleeding; J45.909 Unspecified asthma, uncomplicated; M94.0 Chondrocostal junction syndrome [Tietze]; E66.9 Obesity, unspecified; Z88.2 Allergy status to sulfonamides; Z88.0 Allergy status to penicillin; Z87.891 Personal history of nicotine dependence
CPT/HCPCS: 1NP; 1NSP; 36592; 71046; 78452; 82436; 93005; 93010; 93016; 93017; 96374; 96375; 99291; A9502; J0131; J1245; J1650; J1940; J3490